=== PATIENT | female | born 1980 | race Caucasian/White ===

== ENCOUNTER 2016-10-20 11:43 | Observation (INO) ==
--- NOTE | 2016-10-20 12:05 | Emergency Department Note ---
Disposition Clinical Impression: Dysarthria, Left facial numbness Disposition: Admitted As Inpatient Referrals: NO,PCP [Primary Care Provider] - Forms: ED Satisfaction Letter General Adult HPI - General Chief complaint: ED Neuro Symptoms/Deficit Stated complaint: facial numbness Time Seen by Provider: 10/20/16 11:48 Source: patient, family Limitations: no limitations - History of Present Illness HPI Narrative: 36-year-old female reports to the emergency department with concerns for left facial tingling or numbness and speech disturbance which occurred about 10:50 AM. 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 There is no history of weakness or numbness in the arms or legs, she has been able to move her lips and mouth as per usual. There is no history of convulsion or confusion. No problems walking seeing or hearing. There is no history of confusion. She has been somewhat more anxious than usual over the last month. There is no history of chest pain shortness breath or bowel pain vomiting or diarrhea. The patient has a slight headache. There is no history of head trauma. There is no history of bowel or bladder problems. No back pain. She is not anticoagulated. The patient denies any major medical problems apart from cervical surgery in the past. Pain Scale: 7 - Related Data Home Medications Medication Instructions Recorded Confirmed Omeprazole 04/09/15 04/09/15 Effexor 10/18/16 Ranitidine HCl 10/18/16 Previous Rx's Medication Instructions Recorded Amoxicillin 875 mg PO BID #20 tablet 04/09/15 Guaifenesin/Pseudoephedrne HCl 1 each PO BID #20 tab.er.12h 04/09/15 [Mucinex D ER 1,200-120 mg Tab] Loratadine [Claritin] 10 mg PO DAILY #30 tablet 04/09/15 Azithromycin [Zithromax Susp] 6.25 ml PO DAILY 5 Days 04/13/16 Guaifenesin 100 mg PO Q6-8H PRN #120 mls 04/13/16 PrednisoLONE [Prelone] 5 ml PO BID 3 Days 04/13/16 Omeprazole 20 mg PO DAILY #14 tablet. 10/18/16 Allergies Allergy/AdvReac Type Severity Reaction Status Date / Time Sulfa (Sulfonamide Allergy Abdominal Verified 04/09/15 18:26 Antibiotics) Pain All systems ED: reviewed and negative except as stated. 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 Absent: scleral icterus, conjunctival injection, miosis, mydriasis - ENT ENT exam: normal exam, normal oropharynx, mucous membranes moist, TM's normal bilaterally, normal external ear exam - Neck Neck exam: Present: normal inspection, full ROM, trachea midline. Absent: tenderness, meningismus - Chest Chest inspection: Present: symmetric chest wall rise. Absent: tenderness - Respiratory Respiratory exam: Present: normal lung sounds bilaterally. Absent: respiratory distress - Cardiovascular Cardiovascular exam: Present: regular rate, normal rhythm, normal heart sounds - Abdominal Exam Abdominal exam: Present: soft, Non-Tender, normal bowel sounds. Absent: tenderness, distention, guarding, rebound, rigidity, pulsatile mass - Extremities Exam Extremities exam: Present: normal inspection, full ROM, normal capillary refill. Absent: tenderness, pedal edema, joint swelling, calf tenderness - Expanded Lower Extremity Exam Lower leg exam: Absent: Homans' sign Neurovascular/Tendon exam: Present: normal capillary refill. Absent: motor deficit, sensory deficit, tendon deficit, extremity cold to touch, pallor - Back Exam Back exam: Present: normal inspection, full ROM. Absent: tenderness, CVA tenderness (R), CVA tenderness (L), vertebral tenderness - Neurological Exam Neurological exam: Present: alert, oriented X3, CN II-XII intact, other (The patient describes decreased sensation left face disease, she is able to feel touch however. Speech pattern is not markedly abnormal. Finger to nose testing is negative.). Absent: motor sensory deficit (No overt motor defect.) - Psychiatric Psychiatric exam: Present: normal affect, normal mood - Skin Skin exam: Present: warm, dry, intact, normal color. Absent: rash, cyanosis, diaphoresis, erythema, pallor, mottled Course Vital Signs Temperature 98.1 F 10/20/16 11:48 Pulse Rate 91 03/31/17 11:48 Respiratory Rate 16 10/20/16 11:48 Blood Pressure 139/100 10/20/16 11:48 O2 Sat by Pulse Oximetry 99 10/20/16 11:48 Temperature 98.1 F 10/20/16 11:48 Pulse Rate 81 10/20/16 12:30 Respiratory Rate 16 10/20/16 12:30 Blood Pressure 137/107 10/20/16 12:30 O2 Sat by Pulse Oximetry 97 10/20/16 12:30 Oxygen Delivery Oxygen Delivery Room Air Medical Decision Making - MDM Narrative Medical decision making narrative: The patient was evaluated in the ED, stroke alert was called, CT scan head negative, [facility] neurology via tele-medicine did evaluate the patient. . TPA not recommended. Recommend further evaluation via MRI. Aspirin as well. The patient was given aspirin the ED. She appears to be stable her symptoms seem to be improving. The patient complained of some facial numbness and dysarthria, her speech is clear here, objectively I see no ortiz focal defect. She does have general sensation of the left face ease left upper and left lower extremity. No vascular defects appreciated. Gen. testing unremarkable. With the hospitalist on-call who has accepted the patient to their care. Dr. Neely, Neurology notified as a secondary storage management consultant. - Lab Data Lab results reviewed: Yes I reviewed the patient's lab results. Result diagrams: 10/20/16 12:11 10/20/16 12:11 Lab Results 10/20/16 10/20/16 10/20/16 Range/Units 11:47 12:11 12:11 WBC 12.1 H (4.3-11.1) K/mcL RBC 5.20 H (3.82-4.97) M/mcL Hgb 15.6 H (11.5-15.4) g/dL Hct 46.7 H (35.3-44.9) % MCV 89.8 (83.0-100.0) fL MCH 30.0 (28.0-33.3) pg MCHC 33.4 (31.6-35.5) g/dL RDW 13.3 (11.5-14.5) % Plt Count 319 (140-400) K/mcL MPV 9.3 L (9.4-12.4) fL Immature Gran % 0.2 (0-4) % Seg Neutrophils % 67.5 % Lymphocytes % 27.7 % Monocytes % 4.0 % Eosinophils % 0.3 % Basophils % 0.3 % Neutrophils # 8.2 (1.6-8.9) K/mcL Lymphocytes # 3.4 (0.6-4.6) K/mcL Monocytes # 0.5 (0.0-1.3) K/mcL Eosinophils # 0.0 (0.0-0.6) K/mcL Basophils # 0.0 (0.0-0.2) K/mcL PT 11.4 (9.4-12.1) Seconds INR 1.1 APTT 31.2 (26.0-36.0) Seconds Sodium (136-145) mEq/L Potassium (3.5-4.5) mEq/L Chloride (98-109) mEq/L Carbon Dioxide (19-29) mEq/L BUN (7-20) mg/dL Creatinine (0.57-1.11) mg/dL Est GFR ( Amer) (> 60) Est GFR (Non-Af Amer) (> 60) BUN/Creatinine Ratio (6-26) Glucose (70-99) mg/dL POC Glucose 123 H (58-89) Calculated Osmolality (280-300) Calcium (8.6-10.8) mg/dL Total Bilirubin (0.2-1.2) mg/dL Direct Bilirubin (0.0-0.5) mg/dL Indirect Bilirubin (0.0-1.2) mg/dL AST (5-34) Units/L ALT (0-55) Units/L Alkaline Phosphatase (38-126) Units/L Troponin I (0-0.03) ng/mL C-Reactive Protein (Less than 5) mg/L Serum Total Protein (6.0-8.3) g/dL Albumin (3.5-5.0) g/dL Globulin (2.4-3.5) g/dL Albumin/Globulin Ratio (1.1-2.2) Serum , Qual (Negative) 10/20/16 10/20/16 10/20/16 Range/Units 12:11 12:11 12:11 WBC (4.3-11.1) K/mcL RBC (3.82-4.97) M/mcL Hgb (11.5-15.4) g/dL Hct (35.3-44.9) % MCV (83.0-100.0) fL MCH (28.0-33.3) pg MCHC (31.6-35.5) g/dL RDW (11.5-14.5) % Plt Count (140-400) K/mcL MPV (9.4-12.4) fL Immature Gran % (0-4) % Seg Neutrophils % % Lymphocytes % % Monocytes % % Eosinophils % % Basophils % % Neutrophils # (1.6-8.9) K/mcL Lymphocytes # (0.6-4.6) K/mcL Monocytes # (0.0-1.3) K/mcL Eosinophils # (0.0-0.6) K/mcL Basophils # (0.0-0.2) K/mcL PT (9.4-12.1) Seconds INR APTT (26.0-36.0) Seconds Sodium 138 (136-145) mEq/L Potassium 3.6 (3.5-4.5) mEq/L Chloride 106 (98-109) mEq/L Carbon Dioxide 25 (19-29) mEq/L BUN 9 (7-20) mg/dL Creatinine 1.08 (0.57-1.11) mg/dL Est GFR ( Amer) > 60 (> 60) Est GFR (Non-Af Amer) 57 L (> 60) BUN/Creatinine Ratio 8 (6-26) Glucose 112 H (70-99) mg/dL POC Glucose (58-89) Calculated Osmolality 285 (280-300) Calcium 9.2 (8.6-10.8) mg/dL Total Bilirubin 0.6 (0.2-1.2) mg/dL Direct Bilirubin 0.3 (0.0-0.5) mg/dL Indirect Bilirubin 0.3 (0.0-1.2) mg/dL AST 16 (5-34) Units/L ALT 9 (0-55) Units/L Alkaline Phosphatase 61 (38-126) Units/L Troponin I 0.00 (0-0.03) ng/mL C-Reactive Protein 6 H (Less than 5) mg/L Serum Total Protein 8.0 (6.0-8.3) g/dL Albumin 4.0 (3.5-5.0) g/dL Globulin 4.0 H (2.4-3.5) g/dL Albumin/Globulin Ratio 1.0 L (1.1-2.2) Serum , Qual Negative (Negative) - Radiology Data Radiology results reviewed: Yes I reviewed the patient's radiology results. - EKG Data EKG #1 EKG shows normal: sinus rhythm Rate: normal Interpretation: no acute changes
[2016-10-20 12:18] LABS: Basophils % 0.3 %; Eosinophils % 0.3 %; Hematocrit 46.7 % (35.3-44.9); Hemoglobin 15.6 g/dL (11.5-15.4); Immature Granulocytes % 0.2 % (0-4); Lymphocytes # 3.4 K/mcL (0.6-4.6); Lymphocytes % 27.7 %; Mean Corpuscular HGB Conc 33.4 g/dL (31.6-35.5); Mean Corpuscular Volume 89.8 fL (83.0-100.0); Mean Platelet Volume 9.3 fL (9.4-12.4); Monocytes # 0.5 K/mcL (0.0-1.3); Neutrophils # 8.2 K/mcL (1.6-8.9); Red Cell Distribution Width 13.3 % (11.5-14.5); Segmented Neutrophils % 67.5 %
[2016-10-20 12:20] LABS: Platelet Count 319 K/mcL (140-400)
[2016-10-20 12:24] LABS: INR 1.1; Prothrombin Time 11.4 Seconds (9.4-12.1)
[2016-10-20 12:26] LABS: Activated Partial Thrombo Time 31.2 Seconds (26.0-36.0)
[2016-10-20 12:31] LABS: BUN/Creatinine Ratio 8 (6-26); Blood Urea Nitrogen 9 mg/dL (7-20); Carbon Dioxide 25 mEq/L (19-29); Chloride 106 mEq/L (98-109); Potassium 3.6 mEq/L (3.5-4.5); Sodium 138 mEq/L (136-145); eGFR For African Americans > 60 (> 60)
[2016-10-20 12:32] LABS: Calcium 9.2 mg/dL (8.6-10.8); Glucose 112 mg/dL (70-99); Osmolality,Calculated 285 (280-300); eGFR For Non-African Americans 57 (> 60)
[2016-10-20 12:46] LABS: Alanine Aminotransferase 9 Units/L (0-55); Alkaline Phosphatase 61 Units/L (38-126); Aspartate Amino Transferase 16 Units/L (5-34); Bilirubin,Direct 0.3 mg/dL (0.0-0.5); Bilirubin,Indirect 0.3 mg/dL (0.0-1.2); Bilirubin,Total 0.6 mg/dL (0.2-1.2); C-Reactive Protein 6 mg/L (Less than 5)
[2016-10-20] MEDS ORDERED: Aspirin 325 MG TABLET PO ONE (12:47)
[2016-10-20 13:39] VITALS: BP 144/95
[2016-10-20] MEDS ORDERED: clonazePAM 0.5 MG TABLET PO PRN (13:48)
--- NOTE | 2016-10-20 13:55 | Internal Med History&Physical ---
Date of Encounter: 10/20/16 Time of Encounter: 13:51 Assessment and Plan (1) Left facial numbness Current visit: Yes Status: Acute Possible TIA. Her symptom is improving. NIH stroke scale is one no other focal neurological deficits. Patients will be started on aspirin and Ajay. MRI of the brain as well as MRA of the head and neck will be performed. Echocardiogram on carotid Doppler's. I have advised the patient to discontinue contraceptive pills as they may have provoked this event. She is taking them for control of menstrual irregularities she otherwise is an IUD for contraception. Rule out also dural venous thrombosis. Neurology will see the patient. she will receive heparin and famotidine for DVT and peptic ulcer disease prophylaxis respectively. She is full code. Telemetry monitoring Internal Medicine - H&P: HPI Chief complaint: Left face numbness History of present illness: Ms. Adams is a 36 year old female presents to the emergency room today with the main complain of left facial numbness. Approximately 11 AM today patient started noticing numbness affecting her left face and left hand. Her noted that her speech was slow however it was clear he did not notice any slowing and she had no problems finding the right words. She denied any focal upper or lower extremity weakness. No gate unsteadiness. I have seen the patient approximately 3 hours later and sheimprovement in her numbness on the left side of the face. She denied having any similar problems before. She mentioned that she was started 4 days ago on oral contraceptive pills to control her menstrual irregularities. She has left frontal headache just prior history of migraine headaches. Brody zaldivar has evaluated the patient and did not feel that she is a TPA candidate their impression was possible TIA or Mayor stroke. There recommended MRI of the brain. Past Med Surg Social Fam HX - Past Medical History Medical history: no medical history Psychiatric history: no psych history - Social History Smoking Status: Current every day smoker Smokeless Tobacco Status: No Alcohol use: occasionally Internal Medicine - H&P: Meds Cetirizine HCl [Zyrtec] 10 mg PO DAILY 10/20/16 [History] ClonazePAM [Klonopin] 0.5 mg PO BID PRN 10/20/16 [History] Fluticasone Propionate Nasal [Flonase] 1 spray NS DAILY 10/20/16 [History] Omeprazole [Omeprazole] 20 mg PO BID 10/20/16 [History] Ranitidine HCl [Acid Duplication Specialist] 150 mg PO BID PRN 10/20/16 [History] Venlafaxine HCl [Venlafaxine HCl ER] 37.5 mg PO DAILY 10/20/16 [History] Allergies Sulfa (Sulfonamide Antibiotics) Allergy (Verified 04/09/15 18:26) Abdominal Pain All Systems PM: A 10-system review of systems was performed and is negative for pertinent findings except as documented above in the HPI. Review of systems: 10 point review of systems is negative except for HPI - Constitutional Vitals: Temp Pulse Resp BP Pulse Ox 98.1 F 77 16 144/95 96 10/20/16 13:35 10/20/16 13:35 10/20/16 13:35 10/20/16 13:35 10/20/16 13:35 Exam: Gen.: patient is alert oriented not in distress. Cardiac: Normal S1 S2 no additional sounds or murmurs chest: clear to auscultation abdomen soft nontender nondistended normal bowel sounds lower extremity: lax calf muscles neuro decrease pinprick sensation on left side of face otherwise no neurological deficits Internal Med - H&P Results - Labs CBC & Chem 7: 10/20/16 12:11 10/20/16 12:11
[2016-10-20] MEDS ORDERED: *HR* Heparin 5,000 UNIT/ML VIAL SQ SCH (14:00)
[2016-10-20 15:48] LABS: Bilirubin,Urine Negative (Negative); Blood,Urine Moderate (Negative); Color,Urine Yellow (Yellow); Glucose,Urine (UA) Normal (Normal); Ketones,Urine Negative (Negative); Leukocyte Esterase,Urine Small (Negative); Nitrite,Urine Negative (Negative); PH,Urine 6.5 pH Units (5.0-8.0); Protein,Urine Negative (Neg-Trace); Specific Gravity,Urine 1.013 (1.010-1.025); Urobilinogen,Urine Normal (Normal)
[2016-10-20 15:51] LABS: Bacteria,Urine Few per hpf (None-Few); Hyaline Casts,Urine None Seen per lpf (None-Few); RBC,Urine 0-3 per hpf (0-3); Squamous Epithelial Cell,Urine Many per lpf (None-Few); WBC,Urine 15-30 per hpf (0-3)
[2016-10-20 15:52] LABS: Clarity,Urine Hazy (Clear)
--- NOTE | 2016-10-20 16:14 | Neurology - Consult Note ---
Date of Encounter: 10/20/16 Time of Encounter: 16:11 Assessment and Plan (1) Left facial numbness Current Visit: Yes Status: Acute No evidence of CVA. this could be related to complicated migraine or focal neurological symptoms related to new development of HTN. Her BP was elevated today. She is a young woman and would not recommend antiplatelet therapy at present time, rather, she is advised to monitor her BP and follow up with PCP for proper management of possible new development of HTN. May have chronic migraine and recommend triptan therapy in the form of Imitrex. If migraine worsens in the future and she may benefit from neurology consult as an outpatient. History of Present Illness Chief complaint: left facial numbness and headaches HPI: Ms. Adams is a 36 year old female with PMH significant for migraine who presented acute onset of headache and left facial numbness. This occurred in the morning and she does have a head. She used to have migraine 3-4 times a month. She describes acute onset of left facial numbness and feels like given a shot of novocaine. The feeling lasted less than few hours and resolved. No other discomforts. At the time of this interview, she is asymptomatic. Completed MRI of brain and MRA of brain and neck which were all reported normal studies. Past Med Surg Social Fam HX - Past Medical History Medical history: no medical history Psychiatric history: no psych history - Social History Smoking Status: Current every day smoker Smokeless Tobacco Status: No Alcohol use: occasionally Medications and Allergies Cetirizine HCl [Zyrtec] 10 mg PO DAILY 10/20/16 [History] ClonazePAM [Klonopin] 0.5 mg PO BID PRN 10/20/16 [History] Fluticasone Propionate Nasal [Flonase] 1 spray NS DAILY 10/20/16 [History] Omeprazole [Omeprazole] 20 mg PO BID 10/20/16 [History] Ranitidine HCl [Acid Manager Hi] 150 mg PO BID PRN 10/20/16 [History] Venlafaxine HCl [Venlafaxine HCl ER] 37.5 mg PO DAILY 10/20/16 [History] Allergies Sulfa (Sulfonamide Antibiotics) Allergy (Verified 04/09/15 18:26) Abdominal Pain All Systems: A 10-system review of systems was performed and is negative for pertinent findings except as documented above in the HPI. Physical Examination - Vital Signs Vital Signs: Initial Vital Signs Temp Pulse Resp BP Pulse Ox 98.1 F 91 16 139/100 99 10/20/16 11:48 10/20/16 11:48 10/20/16 11:48 10/20/16 11:48 10/20/16 11:48 - Constitutional General appearance: comfortable - Neurologic Sensorimotor examination: intact Detailed motor examination: grossly full strength in all extremities Motor examination - right side: 5/5: deltoids, biceps, triceps, wrist flexion, wrist extension, office lead, hip flexors, tibialis Anterior, quadriceps, toe extension (EHL), plantarflexion Motor examination - left side: 5/5: deltoids, biceps, triceps, wrist flexion, wrist extension, hip flexors, office lead, quadriceps, tibialis Anterior, toe extension (EHL), plantarflexion Detailed sensory examination: intact Reflex and gait examination: intact Reflexes: Biceps: 1+, Triceps: 1+, Brachioradialis: 1+, Patella: 1+, Achilles: 1 + Mental Status Examination: awake, alert, oriented to person, oriented to place, oriented to time, follows commands appropriately, answers questions appropriately, no agnosia, no aphasia, no aproxia Cranial nerve examination: PERRL, EOMI, visual montes intact, corneal reflexes brisk symmetrically, sensory to face intact, mastication intact, no facial asymmetry is present, no dysarthria, hearing is intact symmetrically, soft palate elevates bilaterally upon phonation, gag reflex intact, flexes SCM and trapezius muscles symmetrically with full power, tongue protrudes midline, no atrophy or facial fasiculations present Cerebellar examination: no dysmetria, performs finger to nose and heel to roberson symmetrically without ataxia, no gait ataxia, no truncal ataxia, no difficulty with rapid alternating movements Results - Laboratory Findings CBC and BMP: 10/20/16 12:11 10/20/16 12:11 Abnormal lab findings: Abnormal lab results WBC 12.1 K/mcL (4.3-11.1) H 10/20/16 12:11 RBC 5.20 M/mcL (3.82-4.97) H 10/20/16 12:11 Hgb 15.6 g/dL (11.5-15.4) H 10/20/16 12:11 Hct 46.7 % (35.3-44.9) H 10/20/16 12:11 MPV 9.3 fL (9.4-12.4) L 10/20/16 12:11 Est GFR (Non-Af Amer) 57 (> 60) L 10/20/16 12:11 Glucose 112 mg/dL (70-99) H 10/20/16 12:11 POC Glucose 123 (58-89) H 10/20/16 11:47 C-Reactive Protein 6 mg/L (Less than 5) H 10/20/16 12:11 Globulin 4.0 g/dL (2.4-3.5) H 10/20/16 12:11 Albumin/Globulin Ratio 1.0 (1.1-2.2) L 10/20/16 12:11 Urine Clarity Hazy (Clear) A 10/20/16 15:40 Urine Blood Moderate (Negative) H 10/20/16 15:40 Ur Leukocyte Esterase Small (Negative) H 10/20/16 15:40 Urine Microscopic WBC 15-30 per hpf (0-3) H 10/20/16 15:40 Ur Squamous Epith Cells Many per lpf (None-Few) H 10/20/16 15:40 Ur Culture Indicated? YES (NO) A 10/20/16 15:40 Consult Discharge Plan - Plan Referrals: Deidra Ortiz, JOE [Primary Care Provider] - 10/27/16 1:00 pm
[2016-10-20 17:23] LABS: Amphetamine Screen,Urine Negative ng/mL (Cutoff=1000); Barbiturate Screen,Urine Negative ng/mL (Cutoff=200); Benzodiazepines Screen,Urine Negative ng/mL (Cutoff=200); Cannabinoid Screen,Urine Negative ng/mL (Cutoff = 50); Cocaine Screen,Urine Negative ng/mL (Cutoff= 300); Opiate Screen,Urine Negative ng/mL (Cutoff=300); Phencyclidine Screen,Urine Negative ng/mL (Cutoff=25)
[2016-10-20] MEDS ORDERED: Famotidine 20 MG TABLET PO SCH (21:00)
[2016-10-21] MEDS ORDERED: Venlafaxine XR (24 HR) 37.5 MG CAP.ER.24H PO SCH (09:00)
[2016-10-21] MEDS ORDERED: Aspirin Enteric Coated 325 MG Tablet PO SCH (09:00)
[2016-10-21] MEDS ORDERED: Fluticasone Propionate Nasal 50 MCG/SPRAY BOTTLE NS SCH (09:00)
--- NOTE | 2016-10-21 09:09 | Electrocardiograph Report ---
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
== END 2016-10-20 17:35 | disposition left against medical advice (07) ==
LOC: EMEROO 11:43 → 3BNU 11:43
PROVIDERS: ADMIT Hospitalist; ATTEND Registered Nurse

== ENCOUNTER 2016-11-25 13:15 | Observation (INO) ==
--- NOTE | 2016-11-25 13:33 | Emergency Department Note ---
Disposition Clinical Impression: Headache, Facial numbness, Left facial numbness, Left arm numbness, Hypertension, Leukocytosis Disposition: Admitted As Inpatient General Adult HPI - General Chief complaint: ED Neuro Symptoms/Deficit Stated complaint: L Facial / Upper Extremity Numbness Time Seen by Provider: 11/25/16 13:23 Source: patient - History of Present Illness HPI Narrative: 36-year-old female reports emergency department complaining of left facial tingling and left arm tingling. She was recently admitted the to the hospital evaluated via MRI MRA of the head neck as well as a neurology consultation. The patient had high blood pressure, they thought perhaps her symptomatology was from elevated blood pressure or possibly a migraine. The patient also had recent carotid duplex ultrasound as her admission here. The patient describes a headache. There is no history of head injury. No neck stiffness rash or fever. No cough runny nose ear pain or sore throat. There is no history of chest pain or shortness of breath no abdominal pain vomiting or diarrhea no vaginal discharge or bleeding no acute back pain. There is no history of confusion or convulsion no trouble walking talking hearing seeing or speaking. The patient reports this tingling and numbness in the same as before. Patient has no personal history of aneurysm brain tumor or mass. No previous brain surgery. She does not describe neck pain or bowel or bladder dysfunction. She reports is not having and tingling started a few days ago. Pain Scale: 2 - Related Data Home Medications Medication Instructions Recorded Confirmed Cetirizine HCl [Zyrtec] 10 mg PO DAILY 10/20/16 10/20/16 ClonazePAM [Klonopin] 0.5 mg PO BID PRN 10/20/16 10/20/16 Fluticasone Propionate Nasal 1 spray NS DAILY 10/20/16 10/20/16 [Flonase] Omeprazole [Omeprazole] 20 mg PO BID 10/20/16 10/20/16 Ranitidine HCl [Acid Res Habilitation Assistant] 150 mg PO BID PRN 10/20/16 10/20/16 Venlafaxine HCl [Venlafaxine HCl 37.5 mg PO DAILY 10/20/16 10/20/16 ER] Allergies Allergy/AdvReac Type Severity Reaction Status Date / Time Sulfa (Sulfonamide Allergy Abdominal Verified 11/25/16 13:25 Antibiotics) Pain All systems ED: reviewed and negative except as stated. 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 Absent: scleral icterus, conjunctival injection, nystagmus, miosis, mydriasis - ENT ENT exam: normal exam, normal oropharynx, mucous membranes moist, TM's normal bilaterally, normal external ear exam - Neck Neck exam: Present: normal inspection, full ROM, trachea midline - Chest Chest inspection: Present: symmetric chest wall rise. Absent: tenderness - Respiratory Respiratory exam: Present: normal lung sounds bilaterally. Absent: respiratory distress, wheezes, accessory muscle use, prolonged expiratory phase - Cardiovascular Cardiovascular exam: Present: regular rate, normal rhythm, normal heart sounds - Abdominal Exam Abdominal exam: Present: soft, Non-Tender, normal bowel sounds. Absent: tenderness, distention, guarding, rebound, rigidity - Extremities Exam Extremities exam: Present: normal inspection, full ROM, normal capillary refill. Absent: tenderness, pedal edema, joint swelling, calf tenderness - Expanded Lower Extremity Exam Neurovascular/Tendon exam: Present: normal capillary refill. Absent: pulse deficit, motor deficit, sensory deficit, tendon deficit, extremity cold to touch , pallor - Back Exam Back exam: Present: normal inspection, full ROM. Absent: tenderness, CVA tenderness (R), CVA tenderness (L), vertebral tenderness - Neurological Exam Neurological exam: Present: alert, oriented X3, CN II-XII intact. Absent: motor sensory deficit - Psychiatric Psychiatric exam: Present: normal affect, normal mood - Skin Skin exam: Present: warm, dry, intact, normal color. Absent: rash, cyanosis, diaphoresis, erythema, pallor, mottled Course Vital Signs Temperature 97.5 F L 11/25/16 13:21 Pulse Rate 72 11/25/16 13:21 Respiratory Rate 16 11/25/16 13:21 Blood Pressure 137/96 11/25/16 13:21 O2 Sat by Pulse Oximetry 99 11/25/16 13:21 Temperature 97.5 F L 11/25/16 13:21 Pulse Rate 83 11/25/16 16:22 Respiratory Rate 16 11/25/16 16:22 Blood Pressure 112/76 11/25/16 16:22 O2 Sat by Pulse Oximetry 96 11/25/16 16:22 Oxygen Delivery Oxygen Delivery Room Air Medical Decision Making - MDM Narrative Medical decision making narrative: The patient has had recurrent neurologic symptoms, her testing has been negative , I consulted with the neurologist on-call Dr. Morris, who feels the patient will definitely need further evaluation including an MRI of the cervical spine and lumbar puncture. He cites that cervical pathology can occasionally cause facial symptomatology. The patient added the history that she has had cervical surgery. Possible consideration could be given for outpatient management depending on patient's capability for follow-up and preference, I reviewed the case directly with the patient who far first to be evaluated in the hospital. She has had recurrent neurologic symptoms should been highly concerning for her.. Based on the patient's recurrent symptomatology, leukocytosis, and neurologist recommendation for further testing, I thought it would be appropriate to admit the patient hospital. I discussed case with the hospitalist on-call who has accepted the patient to their care. - Lab Data Lab results reviewed: Yes I reviewed the patient's lab results. Result diagrams: 11/25/16 14:41 11/25/16 14:41 Lab Results 11/25/16 11/25/16 11/25/16 Range/Units 13:42 13:42 14:41 WBC 14.0 H (4.3-11.1) K/mcL RBC 4.64 (3.82-4.97) M/mcL Hgb 13.9 (11.5-15.4) g/dL Hct 41.8 (35.3-44.9) % MCV 90.1 (83.0-100.0) fL MCH 30.0 (28.0-33.3) pg MCHC 33.3 (31.6-35.5) g/dL RDW 13.3 (11.5-14.5) % Plt Count 340 (140-400) K/mcL MPV 9.6 (9.4-12.4) fL Immature Gran % 0.3 (0-4) % Seg Neutrophils % 63.9 % Lymphocytes % 29.8 % Monocytes % 5.1 % Eosinophils % 0.6 % Basophils % 0.3 % Neutrophils # 9.0 H (1.6-8.9) K/mcL Lymphocytes # 4.2 (0.6-4.6) K/mcL Monocytes # 0.7 (0.0-1.3) K/mcL Eosinophils # 0.1 (0.0-0.6) K/mcL Basophils # 0.0 (0.0-0.2) K/mcL PT (9.4-12.1) Seconds INR APTT (26.0-36.0) Seconds Sodium (136-145) mEq/L Potassium (3.5-4.5) mEq/L Chloride (98-109) mEq/L Carbon Dioxide (19-29) mEq/L BUN (7-20) mg/dL Creatinine (0.57-1.11) mg/dL Est GFR ( Amer) (> 60) Est GFR (Non-Af Amer) (> 60) BUN/Creatinine Ratio (6-26) Glucose (70-99) mg/dL Calculated Osmolality (280-300) Calcium (8.6-10.8) mg/dL Total Bilirubin (0.2-1.2) mg/dL Direct Bilirubin (0.0-0.5) mg/dL Indirect Bilirubin (0.0-1.2) mg/dL AST (5-34) Units/L ALT (0-55) Units/L Alkaline Phosphatase (38-126) Units/L C-Reactive Protein (Less than 5) mg/L Serum Total Protein (6.0-8.3) g/dL Albumin (3.5-5.0) g/dL Globulin (2.4-3.5) g/dL Albumin/Globulin Ratio (1.1-2.2) Serum , Qual (Negative) Urine Test Negative (Negative) Urine Opiates Screen Negative (Vcxrvs=678) ng/mL Ur Barbiturates Screen Negative (Yvyefz=485) ng/mL Ur Phencyclidine Scrn Negative (Cutoff=25) ng/mL Ur Amphetamines Screen Negative (Xyqkjj=6446) ng/mL U Benzodiazepines Scrn Negative (Hgbbkz=507) ng/mL Urine Cocaine Screen Negative (Cutoff= 300) ng/mL U Marijuana (THC) Screen Negative (Cutoff = 50) ng/mL 11/25/16 11/25/16 11/25/16 Range/Units 14:41 14:41 14:41 WBC (4.3-11.1) K/mcL RBC (3.82-4.97) M/mcL Hgb (11.5-15.4) g/dL Hct (35.3-44.9) % MCV (83.0-100.0) fL MCH (28.0-33.3) pg MCHC (31.6-35.5) g/dL RDW (11.5-14.5) % Plt Count (140-400) K/mcL MPV (9.4-12.4) fL Immature Gran % (0-4) % Seg Neutrophils % % Lymphocytes % % Monocytes % % Eosinophils % % Basophils % % Neutrophils # (1.6-8.9) K/mcL Lymphocytes # (0.6-4.6) K/mcL Monocytes # (0.0-1.3) K/mcL Eosinophils # (0.0-0.6) K/mcL Basophils # (0.0-0.2) K/mcL PT 11.5 (9.4-12.1) Seconds INR 1.1 APTT 32.2 (26.0-36.0) Seconds Sodium 139 (136-145) mEq/L Potassium 3.7 (3.5-4.5) mEq/L Chloride 107 (98-109) mEq/L Carbon Dioxide 26 (19-29) mEq/L BUN 8 (7-20) mg/dL Creatinine 0.83 (0.57-1.11) mg/dL Est GFR ( Amer) > 60 (> 60) Est GFR (Non-Af Amer) > 60 (> 60) BUN/Creatinine Ratio 10 (6-26) Glucose 75 (70-99) mg/dL Calculated Osmolality 285 (280-300) Calcium 9.0 (8.6-10.8) mg/dL Total Bilirubin 0.4 (0.2-1.2) mg/dL Direct Bilirubin 0.2 (0.0-0.5) mg/dL Indirect Bilirubin 0.2 (0.0-1.2) mg/dL AST 15 (5-34) Units/L ALT 10 (0-55) Units/L Alkaline Phosphatase 60 (38-126) Units/L C-Reactive Protein 7 H (Less than 5) mg/L Serum Total Protein 6.6 (6.0-8.3) g/dL Albumin 3.4 L (3.5-5.0) g/dL Globulin 3.2 (2.4-3.5) g/dL Albumin/Globulin Ratio 1.1 (1.1-2.2) Serum , Qual (Negative) Urine Test (Negative) Urine Opiates Screen (Ukcozf=509) ng/mL Ur Barbiturates Screen (Xyayoj=731) ng/mL Ur Phencyclidine Scrn (Cutoff=25) ng/mL Ur Amphetamines Screen (Auhfar=9146) ng/mL U Benzodiazepines Scrn (Vjbtkl=798) ng/mL Urine Cocaine Screen (Cutoff= 300) ng/mL U Marijuana (THC) Screen (Cutoff = 50) ng/mL 11/25/16 Range/Units 14:41 WBC (4.3-11.1) K/mcL RBC (3.82-4.97) M/mcL Hgb (11.5-15.4) g/dL Hct (35.3-44.9) % MCV (83.0-100.0) fL MCH (28.0-33.3) pg MCHC (31.6-35.5) g/dL RDW (11.5-14.5) % Plt Count (140-400) K/mcL MPV (9.4-12.4) fL Immature Gran % (0-4) % Seg Neutrophils % % Lymphocytes % % Monocytes % % Eosinophils % % Basophils % % Neutrophils # (1.6-8.9) K/mcL Lymphocytes # (0.6-4.6) K/mcL Monocytes # (0.0-1.3) K/mcL Eosinophils # (0.0-0.6) K/mcL Basophils # (0.0-0.2) K/mcL PT (9.4-12.1) Seconds INR APTT (26.0-36.0) Seconds Sodium (136-145) mEq/L Potassium (3.5-4.5) mEq/L Chloride (98-109) mEq/L Carbon Dioxide (19-29) mEq/L BUN (7-20) mg/dL Creatinine (0.57-1.11) mg/dL Est GFR ( Amer) (> 60) Est GFR (Non-Af Amer) (> 60) BUN/Creatinine Ratio (6-26) Glucose (70-99) mg/dL Calculated Osmolality (280-300) Calcium (8.6-10.8) mg/dL Total Bilirubin (0.2-1.2) mg/dL Direct Bilirubin (0.0-0.5) mg/dL Indirect Bilirubin (0.0-1.2) mg/dL AST (5-34) Units/L ALT (0-55) Units/L Alkaline Phosphatase (38-126) Units/L C-Reactive Protein (Less than 5) mg/L Serum Total Protein (6.0-8.3) g/dL Albumin (3.5-5.0) g/dL Globulin (2.4-3.5) g/dL Albumin/Globulin Ratio (1.1-2.2) Serum , Qual Negative (Negative) Urine Test (Negative) Urine Opiates Screen (Yujzrn=588) ng/mL Ur Barbiturates Screen (Kekfrz=669) ng/mL Ur Phencyclidine Scrn (Cutoff=25) ng/mL Ur Amphetamines Screen (Ndjbic=2190) ng/mL U Benzodiazepines Scrn (Sojnqi=485) ng/mL Urine Cocaine Screen (Cutoff= 300) ng/mL U Marijuana (THC) Screen (Cutoff = 50) ng/mL - Radiology Data Radiology results reviewed: Yes I reviewed the patient's radiology results.
[2016-11-25 14:20] LABS: Amphetamine Screen,Urine Negative ng/mL (Cutoff=1000); Barbiturate Screen,Urine Negative ng/mL (Cutoff=200); Benzodiazepines Screen,Urine Negative ng/mL (Cutoff=200); Cannabinoid Screen,Urine Negative ng/mL (Cutoff = 50); Cocaine Screen,Urine Negative ng/mL (Cutoff= 300); Opiate Screen,Urine Negative ng/mL (Cutoff=300); Phencyclidine Screen,Urine Negative ng/mL (Cutoff=25)
[2016-11-25 15:08] LABS: Basophils % 0.3 %; Eosinophils # 0.1 K/mcL (0.0-0.6); Eosinophils % 0.6 %; Hematocrit 41.8 % (35.3-44.9); Hemoglobin 13.9 g/dL (11.5-15.4); Immature Granulocytes % 0.3 % (0-4); Lymphocytes # 4.2 K/mcL (0.6-4.6); Lymphocytes % 29.8 %; Mean Corpuscular HGB Conc 33.3 g/dL (31.6-35.5); Mean Corpuscular Volume 90.1 fL (83.0-100.0); Mean Platelet Volume 9.6 fL (9.4-12.4); Monocytes # 0.7 K/mcL (0.0-1.3); Monocytes % 5.1 %; Platelet Count 340 K/mcL (140-400); Red Blood Count 4.64 M/mcL (3.82-4.97); Red Cell Distribution Width 13.3 % (11.5-14.5); Segmented Neutrophils % 63.9 %
[2016-11-25 15:13] LABS: INR 1.1; Prothrombin Time 11.5 Seconds (9.4-12.1)
[2016-11-25 15:16] LABS: Activated Partial Thrombo Time 32.2 Seconds (26.0-36.0)
[2016-11-25 15:21] LABS: BUN/Creatinine Ratio 10 (6-26); Blood Urea Nitrogen 8 mg/dL (7-20); Carbon Dioxide 26 mEq/L (19-29); Chloride 107 mEq/L (98-109); Glucose 75 mg/dL (70-99); Osmolality,Calculated 285 (280-300); Potassium 3.7 mEq/L (3.5-4.5); Sodium 139 mEq/L (136-145); eGFR For African Americans > 60 (> 60); eGFR For Non-African Americans > 60 (> 60)
[2016-11-25 15:24] LABS: Albumin 3.4 g/dL (3.5-5.0); Albumin/Globulin Ratio 1.1 (1.1-2.2); Bilirubin,Direct 0.2 mg/dL (0.0-0.5); Bilirubin,Indirect 0.2 mg/dL (0.0-1.2); Bilirubin,Total 0.4 mg/dL (0.2-1.2); Globulin 3.2 g/dL (2.4-3.5); Total Protein 6.6 g/dL (6.0-8.3)
[2016-11-25] MEDS ORDERED: Aspirin 325 MG TABLET PO ONE (18:12)
[2016-11-25] MEDS ORDERED: Naloxone 0.4 MG/ML INJ IVP PRN (19:31)
[2016-11-25] MEDS ORDERED: Acetaminophen 325 MG TABLET PO PRN (19:31)
[2016-11-25] MEDS ORDERED: *HR* HYDROcodone/Acet 5/325 mg TABLET PO PRN (19:31)
--- NOTE | 2016-11-25 19:43 | Internal Med History&Physical ---
<Barbara Muhammad - Last Filed: 11/25/16 20:49> Date of Encounter: 11/25/16 Time of Encounter: 19:00 Assessment and Plan (1) Migraine Current visit: Yes Status: Acute 1 patient has history of migraines she has been experiencing off and on for the past weeks headache radiating down her back left sided facial tingling and left arm numbness. Patient states symptoms resolved after taking Motrin Suspect complex migraine patient was seen approximately a week ago, I neurology who suggested Imitrex for migraines patient's taking Imitrex we will initiate Imitrex as needed for migraine symptoms. Patient also had cervical MRI which did reveal Mild left C6 and C7 neural foraminal narrowing secondary to uncovertebral hypertrophy,Which could be contributing to her arm numbness. 2 we will consult neurology Qualifiers: Migraine type: unspecified Status migrainosus presence: without status migrainosus Intractability: not intractable Qualified Code(s): G43.909 - Migraine, unspecified, not intractable, without status migrainosus (2) Hypertension Current visit: Yes Status: Acute 1 patient presented blood pressure was 137/96. She has been trending blood pressures over the week and appears systolics mostly one teens with occasional systolic 1 30-140 over90. Patient was prescribed atenolol however she did not get her medications filled because her blood pressures have been running normally. We will monitor blood pressure May consider placing patient on propanolol which may help with migraines as well as blood pressure Qualifiers: Hypertension type: essential hypertension Qualified Code(s): I10 - Essential (primary) hypertension (3) Leukocytosis Current visit: Yes Status: Acute 1 patient's WBCs were 12 last week up to 14 this week. Patient is afebrile ensure if infectious process we will obtain urinalysis and recheck CBC in a.m. Qualifiers: Leukocytosis type: unspecified Qualified Code(s): D72.829 - Elevated white blood cell count, unspecified (4) DVT prophylaxis Current visit: Yes Status: Acute CHELSEY hillarybenjamín (5) Elevated troponin Current visit: Yes Status: Acute 1 she denies any chest pain shortness of breath nausea. First troponin was 0.08 we will continue to trend troponins 2 continue with aspirin 3 continuous cardiac monitoring 4 consult cardiology as needed Internal Medicine - H&P: HPI Chief complaint: BAUTISTA Left sided facial numbness Admitted From: Emergency Dept Plans for Post Hospital Care: Home History of present illness: Ms. Adams is a 36 year old female past medical history of tobacco use migraines continue experience numbness in her left arm on it continued until Sunday and resolved on its own this a.m. patient awoke she had a posterior headache radiating down to her neck as well as left sided facial tingling as a day progressed she began to experience left arm numbness. She felt that her symptoms resolved and she had taken ibuprofen. She denies any recent head injury neck stiffness rash fever sick contacts visual disturbances photophobia dysarthria or hearing difficulties. She denies any past history of seizures aneurysms brain surgeries however she has had cervical fusion 2009 patient experienced similar episode approximately 1 week ago was admitted to this facility she was evaluated and had an MRI/MRA of the head as well as neurology consultation. The patient had high blood pressure and it was concluded that symptom neurology was from elevated blood pressure possibly a migraine. She was initiated on atenolol however the patient states she has not been taking it because her blood pressures have been running normal except for a few occasional high readings. She was seen in the ER for the above complaints according to ER records upon presentation patient's blood pressure was 137/96 pulse was 72 respiratory rate 16 pulse ox 99% lab work did reveal to ABC of 14 which is up from previous which was 12 troponin of [address] of head was negative. ER physician did speak with neurology who requested obtaining a cervical MRI possible LP. Patient has been admitted for further workup and evaluation. Presently patient denies any pain numbness or tingling. She is alert appropriate following commands. Speech is clear and fluent extremities are equal and strong 4 pupils are PERRL. No nuchal rigidity no chest pain or shortness of breath lung sounds are clear heart sounds S1 and S2 with no rubs clicks gallops murmurs noted. I reviewed this case with who agrees with plan. Past Med Surg Social Fam HX - Past Medical History Medical history: migraine Psychiatric history: no psych history - Social History Smoking Status: Current every day smoker Smokeless Tobacco Status: No Alcohol use: occasionally Drug use: none - Family History Mother Living Status: Still Living Hx Family Neurologic Disorders: Yes (Migraines) Sister Living Status: Still Living Hx Family Neurologic Disorders: Yes (Migraines) Internal Medicine - H&P: Meds Cetirizine HCl [Zyrtec] 10 mg PO DAILY 10/20/16 [History] ClonazePAM [Klonopin] 0.5 mg PO BID PRN 10/20/16 [History] Fluticasone Propionate Nasal [Flonase] 1 spray NS PRN PRN 10/20/16 [History] Omeprazole [Omeprazole] 20 mg PO BID 10/20/16 [History] Venlafaxine HCl [Venlafaxine HCl ER] 37.5 mg PO DAILY 10/20/16 [History] Allergies Sulfa (Sulfonamide Antibiotics) Allergy (Verified 11/25/16 13:25) Abdominal Pain All Systems PM: A 10-system review of systems was performed and is negative for pertinent findings except as documented above in the HPI. - Constitutional Constitutional: no chills, no fever(s), no night sweats - EENT Eyes: no change in vision, no discharge, no pain, no photophobia - Cardiovascular Cardiovascular ROS IM: no chest pain, no diaphoresis, no dyspnea, no lightheadedness, no palpitations, no syncope - Respiratory Respiratory: no cough, no dyspnea, no wheezing, no excessive phlegm production - Gastrointestinal Gastrointestinal: no abdominal pain, no diarrhea, no hematemesis, no hematochezia, no melena, no nausea, no vomiting - Genitourinary Genitourinary: no change in urinary stream, no dysuria, no flank pain, no hematuria - Musculoskeletal Musculoskeletal ROS IM: neck pain - Neurological Neurological ROS: headache(s), numbness, tingling - Constitutional Vitals: Temp Pulse Resp BP Pulse Ox 97.9 F 74 16 125/82 96 11/25/16 18:43 11/25/16 18:43 11/25/16 18:43 11/25/16 18:43 11/25/16 18:43 General appearance: Present: A&O X 3, answers questions appropriately - Head Head exam: Present: atraumatic, normocephalic - Eye Eye exam: Present: PERRL, conjuntiva pink, sclera anicteric Pupils: Present: PERRL - Neck Neck exam general surgery: Present: supple, trachea midline. Absent: lymphadenopathy - Respiratory Respiratory exam: Present: CTAB. Absent: accessory muscle use, rales, rhonchi, wheezes - Cardiovascular Cardiovascular exam: Present: RRR, +S1, +S2. Absent: diastolic murmur, gallop, rubs, systolic murmur - GI/Abdominal GI/Abdominal exam: Present: normal bowel sounds, soft, no peritoneal signs. Absent: distended, tenderness - Extremities Exam Extremities exam: Present: warm, radial pulses palpable and symetrical. Absent : calf tenderness, cyanotic, pedal edema - Neurological Exam Neurological exam: Present: CN II-XII intact, oriented X3, no focal deficits. Absent: pronater drift, facial droop, speech deficit - Skin Skin exam: Present: dry, intact Internal Med - H&P Results - Labs CBC & Chem 7: 11/25/16 14:41 11/25/16 14:41 - EKG Data EKG shows normal: sinus rhythm - EKG Data Prior EKG available for review: yes When compared to previous EKG: there is no significant change - Impressions ITS Impressions Cervical Spine MRI 11/25/16 17:25 IMPRESSION: 1. No acute abnormality of the cervical spine. 2. Prior C4-5 and C5-6 ACDF. 3. Mild left C6 and C7 neural foraminal narrowing secondary to uncovertebral hypertrophy. D/ / Luis Felipe Mar MD / Luis Felipe Mar MD Interpreting Provider: Luis Felipe Mar MD - Diagnostic Studies Other Images Additional comments: Head CT 11/25/16 13:56 IMPRESSION: No acute intracranial abnormality. D/ / 11/25/2016 15:19:45 Marino Narvaez MD / la Interpreting Provider: Marino Narvaez MD Cervical Spine MRI 11/25/16 17:25 IMPRESSION: 1. No acute abnormality of the cervical spine. 2. Prior C4-5 and C5-6 ACDF. 3. Mild left C6 and C7 neural foraminal narrowing secondary to uncovertebral hypertrophy. D/ / Luis Felipe Mar MD / Luis Felipe Mar MD Interpreting Provider: Luis Felipe Mar MD <Camille España - Last Filed: 11/25/16 21:02> Date of Encounter: 11/25/16 Internal Medicine - H&P: HPI History of present illness: Ms. Adams is a 36 year old female All Systems PM: A 10-system review of systems was performed and is negative for pertinent findings except as documented above in the HPI. - Constitutional Vitals: Temp Pulse Resp BP Pulse Ox 97.9 F 74 16 125/82 96 11/25/16 18:43 11/25/16 18:43 11/25/16 18:43 11/25/16 18:43 11/25/16 18:43 Internal Med - H&P Results - Labs CBC & Chem 7: 11/25/16 14:41 11/25/16 14:41 Labs: Urine 11/25/16 Range/Units 19:56 Urine Color Yellow (Yellow) Urine Clarity Clear (Clear) Urine pH 6.5 (5.0-8.0) pH Units Ur Specific [place] 1.019 (1.010-1.025) Urine Protein Negative (Neg-Trace) mg/dL Urine Glucose (UA) Normal (Normal) mg/dL - Impressions ITS Impressions Cervical Spine MRI 11/25/16 17:25 IMPRESSION: 1. No acute abnormality of the cervical spine. 2. Prior C4-5 and C5-6 ACDF. 3. Mild left C6 and C7 neural foraminal narrowing secondary to uncovertebral hypertrophy. D/ / Luis Felipe Mar MD / Luis Felipe Mar MD Interpreting Provider: Luis Felipe Mar MD - Attending Attestation I examined this patient and my medical decision-making was reviewed with the Advanced Practice Nurse I agree with the documented findings, disposition and treatment plan as described
[2016-11-25] MEDS ORDERED: Ibuprofen 400 MG TABLET PO PRN (20:06)
[2016-11-25 20:07] LABS: Bilirubin,Urine Negative (Negative); Blood,Urine Trace (Negative); Clarity,Urine Clear (Clear); Color,Urine Yellow (Yellow); Glucose,Urine (UA) Normal (Normal); Ketones,Urine Negative (Negative); Leukocyte Esterase,Urine Negative (Negative); Nitrite,Urine Negative (Negative); PH,Urine 6.5 pH Units (5.0-8.0); Protein,Urine Negative (Neg-Trace); Specific Gravity,Urine 1.019 (1.010-1.025); Urobilinogen,Urine Normal (Normal)
[2016-11-25 20:08] LABS: Bacteria,Urine None Seen per hpf (None-Few); Hyaline Casts,Urine None Seen per lpf (None-Few); Squamous Epithelial Cell,Urine Many per lpf (None-Few); WBC,Urine 0-3 per hpf (0-3)
[2016-11-25] MEDS ORDERED: SUMAtriptan succinate 25 MG TABLET PO PRN (20:35)
[2016-11-26 02:57] LABS: Basophils # 0.1 K/mcL (0.0-0.2); Basophils % 0.6 %; Eosinophils # 0.2 K/mcL (0.0-0.6); Eosinophils % 1.4 %; Hemoglobin 13.7 g/dL (11.5-15.4); Immature Granulocytes % 0.2 % (0-4); Lymphocytes # 4.9 K/mcL (0.6-4.6); Lymphocytes % 46.3 %; Mean Corpuscular HGB Conc 32.6 g/dL (31.6-35.5); Mean Corpuscular Hemoglobin 29.7 pg (28.0-33.3); Mean Corpuscular Volume 90.9 fL (83.0-100.0); Mean Platelet Volume 9.7 fL (9.4-12.4); Monocytes # 0.7 K/mcL (0.0-1.3); Monocytes % 6.2 %; Neutrophils # 4.8 K/mcL (1.6-8.9); Platelet Count 349 K/mcL (140-400); Red Blood Count 4.62 M/mcL (3.82-4.97); Red Cell Distribution Width 13.2 % (11.5-14.5); Segmented Neutrophils % 45.3 %
[2016-11-26 03:14] LABS: BUN/Creatinine Ratio 10 (6-26); Blood Urea Nitrogen 11 mg/dL (7-20); Calcium 8.6 mg/dL (8.6-10.8); Carbon Dioxide 27 mEq/L (19-29); Chloride 108 mEq/L (98-109); Chol/HDL Ratio 4.1 (0-4.9); Cholesterol 135 mg/dL (< 200); Glucose 101 mg/dL (70-99); HDL Cholesterol 33 mg/dL (40-59); LDL Cholesterol,Calculated 76 mg/dL (0-99); Osmolality,Calculated 292 (280-300); Potassium 3.4 mEq/L (3.5-4.5); Sodium 141 mEq/L (136-145); Triglycerides 129 mg/dL (< 150); eGFR For African Americans > 60 (> 60); eGFR For Non-African Americans 56 (> 60)
[2016-11-26 07:12] VITALS: BP 106/72
[2016-11-26] MEDS ORDERED: Fluticasone Propionate Nasal 50 MCG/SPRAY BOTTLE NS PRN (08:05)
[2016-11-26] MEDS ORDERED: clonazePAM 0.5 MG TABLET PO PRN (08:05)
[2016-11-26] MEDS ORDERED: Aspirin 81 MG TAB.CHEW PO SCH (09:00)
[2016-11-26] MEDS ORDERED: Loratadine 10 MG TABLET PO SCH (09:00)
[2016-11-26] MEDS ORDERED: Venlafaxine XR (24 HR) 37.5 MG CAP.ER.24H PO SCH (09:00)
--- NOTE | 2016-11-26 09:28 | Electrocardiograph Report ---
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
--- NOTE | 2016-11-26 11:08 | Neurosurgical History&Physical ---
Date of Encounter: 11/26/16 Time of Encounter: 11:03 Assessment and Plan (1) Left facial numbness Current visit: Yes Status: Acute Possible TIA in the setting of hypertension and/or hypercoagulable factors. Needs outpatient evaluation for hypercoagulability. Possible demyelinating disease: Needs outpatient LP and neurology follow-up with Dr. Arenas/Florinda. Possible complicated migraines: diagnosis of exclusion - the above two should be excluded. Topmax is a good choice for this, final of 50 bid. May be started outpatient with Neurology follow-up, since a new medication for hypertension has been started. If Propranolol or atenolol is chosen, it may work for migraines as well. Call if questions. History of Present Illness Chief complaint: left facial numbness, left arm numbness HPI: Ms. Adams is a 36 year old female The patient is a 36-year old woman who came to the ER with complaints of left face/arm numbness. Has had hypertension in the past. She was seen here in September for similar problem, at which time, hypertensive etiology versus migraines was suspected. She was sent home once the blood pressure was down. She has significant history of migraines, one bad one in a week, during which she has to go to a quiet, dark room, and sleep it away. No bowel bladder issues. No prior history of visual problems, double vision, or ataxia. Not diabetic. Both times, when she had the facial and arm symptoms, she had headache. Her LP could not be done yesterday. Doing well today. has no complaints. States that she is back to baseline and wants to go home. Past Med Surg Social Fam HX - Past Medical History Medical history: hypertension (per patient report), migraine Psychiatric history: no psych history - Past Surgical History Surgical History: other - Social History Smoking Status: Current every day smoker Packs per day: 0.5 Smokeless Tobacco Status: No Alcohol use: occasionally Drug use: none - Family History Mother Adopted: [place]: JIGNESH Age: 61 Family Member Ethnicity: Non- Living Status: Still Living Hx Family Cardiac Disorders: Yes (HTN) Hx Family Respiratory Disorders: No Hx Family Cancer: No Hx Family GI Disorders: No Hx Family Genitourinary Disorders: No Hx Family Endocrine Disorder: No Hx Family Musculoskeletal Disorders: No Hx Family Neuromuscular Disorders: No Hx Family Neurologic Disorders: Yes (Migraines) Hx Family HEENT Disorders: No Hx Family Autoimmune Disorders: No Hx Family Reproductive Disorders: No Hx Family Psychosocial Disorders: No Hx Family Medical Disorders: No Sister Living Status: Still Living Hx Family Neurologic Disorders: Yes (Migraines) Medications and Allergies Cetirizine HCl [Zyrtec] 10 mg PO DAILY 10/20/16 [History] ClonazePAM [Klonopin] 0.5 mg PO BID PRN 10/20/16 [History] Fluticasone Propionate Nasal [Flonase] 1 spray NS PRN PRN 10/20/16 [History] Omeprazole [Omeprazole] 20 mg PO BID 10/20/16 [History] Venlafaxine HCl [Venlafaxine HCl ER] 37.5 mg PO DAILY 10/20/16 [History] Allergies Sulfa (Sulfonamide Antibiotics) Allergy (Verified 11/25/16 13:25) Abdominal Pain All Systems: A 10-system review of systems was performed and is negative for pertinent findings except as documented above in the HPI. Physical Examination - Vital Signs Vital Signs: Initial Vital Signs Temp Pulse Resp BP Pulse Ox 97.5 F L 72 16 137/96 99 11/25/16 13:21 11/25/16 13:21 11/25/16 13:21 11/25/16 13:21 11/25/16 13:21 Vital Signs (72 hours) 11/25/16 13:21 11/25/16 15:44 11/25/16 16:22 Temperature 97.5 F L Pulse Rate 72 64 83 Respiratory Rate 16 14 16 Blood Pressure 137/96 112/74 112/76 O2 Sat by Pulse Oximetry 99 97 96 11/25/16 17:55 11/25/16 18:43 11/25/16 23:04 Temperature 97.9 F 98 F Pulse Rate 74 70 Respiratory Rate 16 16 16 Blood Pressure 124/91 125/82 97/68 O2 Sat by Pulse Oximetry 96 94 11/26/16 03:11 11/26/16 07:11 Temperature 97.5 F L 97.9 F Pulse Rate 73 79 Respiratory Rate 14 16 Blood Pressure 114/79 106/72 O2 Sat by Pulse Oximetry 96 97 - Neurologic Sensorimotor examination: intact Motor examination - right side: 5: deltoids, biceps, triceps, wrist flexion, 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 extension, 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, hip flexors, tibialis Anterior, quadriceps, toe extension (EHL), plantarflexion Motor examination - left side: 11/24: deltoids, biceps, triceps, wrist flexion, wrist extension, hip flexors, 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, quadriceps, tibialis Anterior, toe extension (EHL), plantarflexion Detailed sensory examination: intact (to light touch, temperature and vibration) Reflex and gait examination: intact Reflexes: Biceps: 2+, Triceps: 2+, Brachioradialis: 2+, Patella: 2+, Achilles: 2 + Mental Status Examination: awake, alert, oriented to person, oriented to place, oriented to time, follows commands appropriately, answers questions appropriately, no agnosia, no aphasia, no aproxia, lucid Cranial nerve examination: PERRL, EOMI, visual montes intact, corneal reflexes brisk symmetrically, sensory to face intact, mastication intact, no facial asymmetry is present, no dysarthria, hearing is intact symmetrically, soft palate elevates bilaterally upon phonation, gag reflex intact, flexes SCM and trapezius muscles symmetrically with full power, tongue protrudes midline, no atrophy or facial fasiculations present Cerebellar examination: no dysmetria, performs finger to nose and heel to roberson symmetrically without ataxia, no gait ataxia, no truncal ataxia, no difficulty with rapid alternating movements Results - Laboratory Findings CBC and BMP: 11/26/16 02:31 11/26/16 02:31 Abnormal lab findings: Abnormal lab results Lymphocytes # 4.9 K/mcL (0.6-4.6) H 11/26/16 02:31 Potassium 3.4 mEq/L (3.5-4.5) L 11/26/16 02:31 Est GFR (Non-Af Amer) 56 (> 60) L 11/26/16 02:31 Glucose 101 mg/dL (70-99) H 11/26/16 02:31 C-Reactive Protein 7 mg/L (Less than 5) H 11/25/16 14:41 Albumin 3.4 g/dL (3.5-5.0) L 11/25/16 14:41 HDL Cholesterol 33 mg/dL (40-59) L 11/26/16 02:31 Urine Blood Trace (Negative) H 11/25/16 19:56 Urine Microscopic RBC 5-15 per hpf (0-3) H 11/25/16 19:56 Ur Squamous Epith Cells Many per lpf (None-Few) H 11/25/16 19:56 - Diagnostic Findings Additional findings: Prior MRI brain normal. ITS Impressions Head CT 11/25/16 13:56 IMPRESSION: No acute intracranial abnormality. D/ / 11/25/2016 15:19:45 Marino Narvaez MD / la Interpreting Provider: Marino Narvaez MD Cervical Spine MRI 11/25/16 17:25 IMPRESSION: 1. No acute abnormality of the cervical spine. 2. Prior C4-5 and C5-6 ACDF. 3. Mild left C6 and C7 neural foraminal narrowing secondary to uncovertebral hypertrophy. D/ / Luis Felipe Mar MD / Luis Felipe Mar MD Interpreting Provider: Luis Felipe Mar MD
--- NOTE | 2016-11-26 12:48 | Discharge Summary ---
Date of Encounter: 11/26/16 Time of Encounter: 09:30 - Discharge Diagnosis (1) Left facial numbness Priority: Primary Status: Resolved (2) Headache Priority: Primary Status: Resolved (3) Left arm numbness Priority: Primary Status: Resolved (4) Hypertension Priority: Secondary Status: Chronic Comments: Well-controlled throughout this admission Qualifiers: Hypertension type: essential hypertension Qualified Code(s): I10 - Essential (primary) hypertension (5) Leukocytosis Priority: Primary Status: Resolved Qualifiers: Leukocytosis type: unspecified Qualified Code(s): D72.829 - Elevated white blood cell count, unspecified (6) Migraine Priority: Primary Status: Resolved Qualifiers: Migraine type: unspecified Status migrainosus presence: without status migrainosus Intractability: not intractable Qualified Code(s): G43.909 - Migraine, unspecified, not intractable, without status migrainosus (7) DVT prophylaxis Priority: Primary Status: Acute Comments: Observation patient. Up ad vanesa. (8) Elevated troponin Priority: Primary Status: Resolved - Discharge Medications Home Medications: Cetirizine HCl [Zyrtec] 10 mg PO DAILY 10/20/16 [History] ClonazePAM [Klonopin] 0.5 mg PO BID PRN 10/20/16 [History] Fluticasone Propionate Nasal [Flonase] 1 spray NS PRN PRN 10/20/16 [History] Omeprazole 20 mg PO BID 10/20/16 [History] Venlafaxine HCl [Venlafaxine HCl ER] 37.5 mg PO DAILY 10/20/16 [History] Allergies/Adverse Reactions: Allergies Sulfa (Sulfonamide Antibiotics) Allergy (Verified 11/25/16 13:25) Abdominal Pain Procedures/tests Complete & Pending: Procedures Performed prior 72 hours Category Date Time Status MR cervical spine wo con [MR] Stat MRI 11/25/16 17:25 Completed Date of admission: 11/25/16 17:19 Primary care physician: Deidra Ortiz CNP Consults: 11/25/16 19:34 Consult to Neurology [CONS] Routine Consulting Provider: Neurology [facility] Reason for Consult: BAUTISTA left sided facial numbness Time Notified: 19:34 Call Completed: No Discharging clinician: Darleen Fletcher Anticipated date of discharge: 11/26/16 - Patient Status Disposition: Home, Self-Care Condition: Good Functional capacity at discharge: independent ambulation Overall status at discharge: patient is back to baseline - Discharge Instructions Follow Up With: Deidra Ortiz CNP [Primary Care Provider] - Neurology [facility] [Provider Group] Additional Instructions: Follow-up with primary care provider within one to 2 weeks. Obtain lumbar puncture within 1 week and follow up with neurology within 2 weeks - Diet and Activity Activity: increase activity as tolerated Diet: low salt diet Hospital course: Ms. Adams is a 36 year old female with past medical history of migraines, tobacco abuse, prior cervical fusion in 2009. Patient presented to emergency room chief complaint numbness in her left arm that started 2 days prior to presentation that resolved on its own but 2 days later which was the day of presentation, patient woke up in the morning and had a posteriorly located headache radiating down her neck and the left side of her face that progressed through the day to include left arm numbness. Patient stating her symptoms had resolved again after she had taken ibuprofen. She denied any recent injuries, rash, fever, vision changes or hearing difficulties. Of note, patient had an episode similar to this one and she was seen at this facility one week prior where an MRI and MRA of the head was unremarkable and it was attributed to a complex migraine versus uncontrolled hypertension the patient was started on atenolol. Patient stating she has not been taking the atenolol as prescribed because she states that she is trending her blood pressure and her blood pressure has not been high enough to warrant taking the medication. Workup in the emergency department revealing an initially elevated troponin of 0.08. Head CT negative. Cervical spine MRI negative for acute processes. Patient was admitted to the hospitalist service for further evaluation and management. Repeat troponins 2 both 0.00. Patient denied chest pain or shortness of breath throughout this admission, likely demand ischemia secondary to hypertension. Patient's blood pressure was well-controlled during this one night admission and she did not receive any antihypertensive medications. Neurology was brought on board and as the patient's symptoms had completely resolved, she was cleared for outpatient follow-up with strong recommendation for an outpatient LP to possibly rule out MS with follow-up with neurology after her LP. There was no indication to initiate blood pressure medication during this visit. Patient's migraine also resolved. Urinalysis was negative. Tox screen is negative. Neuro also recommended possible initiation of Topamax on an outpatient basis at the discretion of neurology if hypercoagulable and demyelinating disease is ruled out. Patient was asymptomatic and had no focal neurological weakness is present during this admission. She is discharged home in stable condition with close outpatient follow-up recommended. ITS Impressions Head CT 11/25/16 13:56 IMPRESSION: No acute intracranial abnormality. D/ / 11/25/2016 15:19:45 Marino Narvaez MD / la Interpreting Provider: Marino Narvaez MD Cervical Spine MRI 11/25/16 17:25 IMPRESSION: 1. No acute abnormality of the cervical spine. 2. Prior C4-5 and C5-6 ACDF. 3. Mild left C6 and C7 neural foraminal narrowing secondary to uncovertebral hypertrophy. D/ / Luis Felipe Mar MD / Luis Felipe Mar MD Interpreting Provider: Luis Felipe Mar MD - Time Spent with Patient Total time spent providing and/or coordinating discharge services: - Constitutional Vitals: Temp Pulse Resp BP Pulse Ox 97.9 F 79 16 106/72 97 11/26/16 07:11 11/26/16 07:11 11/26/16 07:11 11/26/16 07:11 11/26/16 07:11 General appearance: Present: A&O X 3, pleasant, no acute distress, answers questions appropriately - Head Head exam: Present: atraumatic, normocephalic - Eye Eye exam: Present: PERRL, conjuntiva pink, sclera anicteric Pupils: Present: PERRL - Neck Neck exam general surgery: Present: supple, trachea midline. Absent: lymphadenopathy - Respiratory Respiratory exam: Present: CTAB. Absent: accessory muscle use, rales, respiratory distress, rhonchi, wheezes - Cardiovascular Cardiovascular exam: Present: RRR, +S1, +S2. Absent: diastolic murmur, gallop, rubs, systolic murmur - GI/Abdominal GI/Abdominal exam: Present: normal bowel sounds, soft, no peritoneal signs. Absent: distended, tenderness - Extremities Exam Extremities exam: Present: warm, radial pulses palpable and symetrical. Absent : calf tenderness, cyanotic, pedal edema - Neurological Exam Neurological exam: Present: alert, CN II-XII intact, oriented X3, no focal deficits, strengths equal and symetr throughout. Absent: pronater drift, facial droop, speech deficit - Skin Skin exam: Present: dry, intact, normal color, warm
== END 2016-11-26 13:45 | disposition home or self-care (01) ==
LOC: 3BNU 13:15 → EMEROO 13:15 → 3BNU 18:08
PROVIDERS: ADMIT Nurse Practitioner Family; ATTEND Nurse Practitioner Family

== ENCOUNTER 2017-10-21 22:13 | Inpatient (IN) ==
[2017-10-21 22:55] LABS: Bilirubin,Urine Negative (Negative); Blood,Urine Moderate (Negative); Clarity,Urine Cloudy (Clear); Color,Urine Yellow (Yellow); Glucose,Urine (UA) Normal (Normal); Ketones,Urine Negative (Negative); Leukocyte Esterase,Urine Small (Negative); Nitrite,Urine Negative (Negative); Protein,Urine Negative (Neg-Trace); Specific Gravity,Urine 1.019 (1.010-1.025); Urobilinogen,Urine Normal (Normal)
[2017-10-21 22:58] LABS: Bacteria,Urine Few per hpf (None-Few); Hyaline Casts,Urine None Seen per lpf (None-Few); Squamous Epithelial Cell,Urine Many per lpf (None-Few)
[2017-10-21 23:29] LABS: Basophils # 0.1 K/mcL (0.0-0.2); Basophils % 0.4 %; Eosinophils # 0.1 K/mcL (0.0-0.6); Eosinophils % 0.4 %; Hematocrit 42.3 % (35.3-44.9); Immature Granulocytes % 0.3 % (0-4); Lymphocytes # 4.4 K/mcL (0.6-4.6); Lymphocytes % 36.9 %; Mean Corpuscular HGB Conc 33.1 g/dL (31.6-35.5); Mean Corpuscular Hemoglobin 29.9 pg (28.0-33.3); Mean Corpuscular Volume 90.4 fL (83.0-100.0); Mean Platelet Volume 9.3 fL (9.4-12.4); Monocytes # 0.8 K/mcL (0.0-1.3); Neutrophils # 6.6 K/mcL (1.6-8.9); Platelet Count 330 K/mcL (140-400); Red Blood Count 4.68 M/mcL (3.82-4.97); Red Cell Distribution Width 13.2 % (11.5-14.5)
[2017-10-21 23:48] LABS: Albumin 3.8 g/dL (3.5-5.7); Albumin/Globulin Ratio 1.5 (1.1-2.2); Bilirubin,Direct 0.1 mg/dL (0.0-0.2); Bilirubin,Indirect 0.1 mg/dL (0.0-1.2); Bilirubin,Total 0.2 mg/dL (0.3-1.0); Globulin 2.5 g/dL (2.4-3.5); Total Protein 6.3 g/dL (6.4-8.9)
[2017-10-21 23:49] LABS: BUN/Creatinine Ratio 10 (6-26); Blood Urea Nitrogen 9 mg/dL (6-20); Calcium 9.3 mg/dL (8.6-10.3); Carbon Dioxide 23 mEq/L (23-29); Chloride 108 mEq/L (98-107); Glucose 87 mg/dL (70-105); Osmolality,Calculated 284 (280-300); Potassium 3.6 mEq/L (3.5-5.1); Sodium 138 mEq/L (136-145); eGFR For African Americans > 60 (> 60); eGFR For Non-African Americans > 60 (> 60)
[2017-10-22 00:08] LABS: Amphetamine Screen,Urine Negative ng/mL (Cutoff=1000); Barbiturate Screen,Urine Negative ng/mL (Cutoff=200); Benzodiazepines Screen,Urine Negative ng/mL (Cutoff=200); Cannabinoid Screen,Urine Positive ng/mL (Cutoff = 50); Cocaine Screen,Urine Negative ng/mL (Cutoff= 300); Opiate Screen,Urine Negative ng/mL (Cutoff=300); Phencyclidine Screen,Urine Negative ng/mL (Cutoff=25)
[2017-10-22] MEDS ORDERED: Nicotine 14 MG PATCH.TD24 TD ONE (00:15)
[2017-10-22 00:18] LABS: Ethanol 17 mg/dL (Less than 10); Salicylate < 2.5 mg/dL (15.0-30.0)
[2017-10-22 00:39] LABS: Acetaminophen < 10 mcg/mL (10-20)
--- NOTE | 2017-10-22 02:01 | Emergency Department Note ---
Disposition Clinical Impression: Suicide attempt Disposition: Admitted As Inpatient Condition: Good Referrals: NONE,PCP [Primary Care Provider] - Forms: ED Satisfaction Letter Time of Disposition: 06:31 General Adult HPI - General Chief complaint: ED Psychiatric Symptoms Stated complaint: SI Time Seen by Provider: 10/21/17 22:41 Source: patient, EMS Mode of arrival: EMS Limitations: no limitations Nursing Notes Reviewed: Yes Vital Signs Reviewed: Yes - History of Present Illness HPI Narrative: 29-year-old female with significant past medical history of depression and hypertension presenting to the emergency Department chief complaint of suicidal ideation. Patient states she took 28 of her 50 mg Zoloft at 9 PM just prior to arrival. Patient was suicidal and. Patient denies visual or auditory hallucinations. States she has been hospitalized for depression previously. Denies any other alcohol or drug intoxication. Patient denies any medical concerns or complaints at this time. Pain Scale: 0 - Related Data Home Medications Medication Instructions Recorded Confirmed Atenolol [Tenormin] 25 mg PO DAILY 03/29/17 08/09/17 Pantoprazole Sodium 40 mg PO DAILY 03/29/17 08/09/17 Cetirizine HCl [Zyrtec] 10 mg PO DAILY PRN 04/16/17 08/09/17 Venlafaxine XR (24 HR) [Effexor XR] 150 mg PO HS 04/16/17 08/09/17 Mirtazapine [Remeron] 15 mg PO HS 08/09/17 08/09/17 Prazosin [Minipress] 1 mg PO HS 08/09/17 08/09/17 Venlafaxine HCl [Venlafaxine HCl 75 mg PO HS 08/09/17 08/09/17 ER] Previous Rx's Medication Instructions Recorded Amoxicillin [Amoxil] 1,000 mg PO BID 10 Days #20 capsule 08/28/17 Ibuprofen 800 mg PO Q8HR PRN #30 tablet 08/28/17 Loratadine [Claritin] 10 mg PO DAILY #20 tablet 08/28/17 Allergies Allergy/AdvReac Type Severity Reaction Status Date / Time Sulfa (Sulfonamide Allergy Anaphylaxis Verified 08/28/17 12:38 Antibiotics) All systems ED: reviewed and negative except as stated. Psychiatric: Reports: depression, suicidal thoughts Past Medical History - Past Medical History Attestation: Yes The following information was validated with the patient. Medical history: Reports: hypertension, TIA, other Surgical history: Reports: breast surgery, orthopedic, other, other Psychiatric history: Reports: anxiety, bipolar, depression, PTSD [employer] history: Reports: bilateral tubal ligation - Social History Smoking Status: Current every day smoker Smokeless Tobacco Status: No Alcohol use: Reports: rarely, recent Drug use: Reports: marijuana Physical Exam - General Limitations: no limitations General appearance: alert, in no apparent distress - Head Head exam: atraumatic, normocephalic, normal inspection - Eye Eye exam: Present: normal appearance. Absent: scleral icterus, conjunctival injection - ENT ENT exam: normal exam, mucous membranes moist - Neck Neck exam: Present: normal inspection, full ROM. Absent: tenderness, meningismus - Chest Chest inspection: Present: normal inspection, symmetric chest wall rise. Absent : tenderness, rash - Respiratory Respiratory exam: Present: normal lung sounds bilaterally. Absent: respiratory distress, wheezes - Cardiovascular Cardiovascular exam: Present: regular rate, normal rhythm, normal heart sounds - Abdominal Exam Abdominal exam: Present: soft, Non-Tender. Absent: distention, guarding, rebound - Extremities Exam Extremities exam: Present: normal inspection, full ROM - Neurological Exam Neurological exam: Present: alert, oriented X3 - Psychiatric Psychiatric exam: Present: suicidal ideation - Skin Skin exam: Present: warm, intact Course Course Narrative: 29-year-old female with suicidal ideation and overdose of Zoloft. I spoke with poison control who states basic laboratory analysis along with hepatic panel and EKG plus observation for 6 hours after time of ingestion is necessary for medical clearance. We will obtain basic laboratory analysis and urinalysis. We will also obtain EKG and observe the patient until 3 AM. Patient disposition pending these results and psychiatric clearance. Patient is alert and oriented 3 and room with stable vital signs. No medical concerns or complaints at this time. - Reevaluation(s) Reevaluation #1: Patient was observed until 3 AM with no complications or concerns. Psychiatric evaluation completed by 1A who feels the patient should be admitted at this time for further psychiatric evaluation. Patient is alert and oriented 3 in the room stable vital signs. We will admit the patient at this time. On-call psychiatrist accept the patient. Vital Signs Temperature 98.0 F 10/21/17 22:28 Pulse Rate 82 10/21/17 22:28 Respiratory Rate 18 10/21/17 22:28 Blood Pressure 103/69 10/21/17 22:28 O2 Sat by Pulse Oximetry 96 10/21/17 22:28 Temperature 98.0 F 10/21/17 22:28 Pulse Rate 82 10/21/17 22:28 Respiratory Rate 18 10/21/17 22:28 Blood Pressure 103/69 10/21/17 22:28 O2 Sat by Pulse Oximetry 96 10/21/17 22:28 Oxygen Delivery Oxygen Delivery Room Air Medical Decision Making - Lab Data Result diagrams: 10/21/17 23:08 10/21/17 23:08 Lab Results 10/21/17 10/21/17 10/21/17 Range/Units 22:20 22:20 22:20 WBC (4.3-11.1) K/mcL RBC (3.82-4.97) M/mcL Hgb (11.5-15.4) g/dL Hct (35.3-44.9) % MCV (83.0-100.0) fL MCH (28.0-33.3) pg MCHC (31.6-35.5) g/dL RDW (11.5-14.5) % Plt Count (140-400) K/mcL MPV (9.4-12.4) fL Immature Gran % (0-4) % Seg Neutrophils % % Lymphocytes % % Monocytes % % Eosinophils % % Basophils % % Neutrophils # (1.6-8.9) K/mcL Lymphocytes # (0.6-4.6) K/mcL Monocytes # (0.0-1.3) K/mcL Eosinophils # (0.0-0.6) K/mcL Basophils # (0.0-0.2) K/mcL Sodium (136-145) mEq/L Potassium (3.5-5.1) mEq/L Chloride (98-107) mEq/L Carbon Dioxide (23-29) mEq/L BUN (6-20) mg/dL Creatinine (0.60-1.20) mg/dL Est GFR ( Amer) (> 60) Est GFR (Non-Af Amer) (> 60) BUN/Creatinine Ratio (6-26) Glucose (70-105) mg/dL Calculated Osmolality (280-300) Calcium (8.6-10.3) mg/dL Total Bilirubin (0.3-1.0) mg/dL Direct Bilirubin (0.0-0.2) mg/dL Indirect Bilirubin (0.0-1.2) mg/dL AST (13-39) Units/L ALT (7-52) Units/L Alkaline Phosphatase (34-104) Units/L Serum Total Protein (6.4-8.9) g/dL Albumin (3.5-5.7) g/dL Globulin (2.4-3.5) g/dL Albumin/Globulin Ratio (1.1-2.2) Urine Color Yellow (Yellow) Urine Clarity Cloudy A (Clear) Urine pH 6.0 (5.0-8.0) pH Units Ur Specific [place] 1.019 (1.010-1.025) Urine Protein Negative (Neg-Trace) mg/dL Urine Glucose (UA) Normal (Normal) mg/dL Urine Ketones Negative (Negative) mg/dL Urine Blood Moderate H (Negative) Urine Nitrite Negative (Negative) Urine Bilirubin Negative (Negative) Urine Urobilinogen Normal (Normal) mg/dL Ur Leukocyte Esterase Small H (Negative) Urine Microscopic RBC 5-15 H (0-3) per hpf Urine Microscopic WBC 5-15 H (0-3) per hpf Ur Squamous Epith Cells Many H (None-Few) per lpf Urine Bacteria Few (None-Few) per hpf Hyaline Casts None Seen (None-Few) per lpf Urine Test Negative (Negative) Salicylates (15.0-30.0) mg/dL Urine Opiates Screen Negative (Ssytzj=567) ng/mL Acetaminophen (10-20) mcg/mL Ur Barbiturates Screen Negative (Tqadmc=865) ng/mL Ur Phencyclidine Scrn Negative (Cutoff=25) ng/mL Ur Amphetamines Screen Negative (Grhree=0950) ng/mL U Benzodiazepines Scrn Negative (Pwsgfo=973) ng/mL Urine Cocaine Screen Negative (Cutoff= 300) ng/mL U Marijuana (THC) Screen Positive H (Cutoff = 50) ng/mL Ethyl Alcohol (Less than 10) mg/dL 10/21/17 10/21/17 10/21/17 Range/Units 23:08 23:08 23:08 WBC 12.0 H (4.3-11.1) K/mcL RBC 4.68 (3.82-4.97) M/mcL Hgb 14.0 (11.5-15.4) g/dL Hct 42.3 (35.3-44.9) % MCV 90.4 (83.0-100.0) fL MCH 29.9 (28.0-33.3) pg MCHC 33.1 (31.6-35.5) g/dL RDW 13.2 (11.5-14.5) % Plt Count 330 (140-400) K/mcL MPV 9.3 L (9.4-12.4) fL Immature Gran % 0.3 (0-4) % Seg Neutrophils % 55.0 % Lymphocytes % 36.9 % Monocytes % 7.0 % Eosinophils % 0.4 % Basophils % 0.4 % Neutrophils # 6.6 (1.6-8.9) K/mcL Lymphocytes # 4.4 (0.6-4.6) K/mcL Monocytes # 0.8 (0.0-1.3) K/mcL Eosinophils # 0.1 (0.0-0.6) K/mcL Basophils # 0.1 (0.0-0.2) K/mcL Sodium 138 (136-145) mEq/L Potassium 3.6 (3.5-5.1) mEq/L Chloride 108 H (98-107) mEq/L Carbon Dioxide 23 (23-29) mEq/L BUN 9 (6-20) mg/dL Creatinine 0.93 (0.60-1.20) mg/dL Est GFR ( Amer) > 60 (> 60) Est GFR (Non-Af Amer) > 60 (> 60) BUN/Creatinine Ratio 10 (6-26) Glucose 87 (70-105) mg/dL Calculated Osmolality 284 (280-300) Calcium 9.3 (8.6-10.3) mg/dL Total Bilirubin 0.2 L (0.3-1.0) mg/dL Direct Bilirubin 0.1 (0.0-0.2) mg/dL Indirect Bilirubin 0.1 (0.0-1.2) mg/dL AST 14 (13-39) Units/L ALT 10 (7-52) Units/L Alkaline Phosphatase 69 (34-104) Units/L Serum Total Protein 6.3 L (6.4-8.9) g/dL Albumin 3.8 (3.5-5.7) g/dL Globulin 2.5 (2.4-3.5) g/dL Albumin/Globulin Ratio 1.5 (1.1-2.2) Urine Color (Yellow) Urine Clarity (Clear) Urine pH (5.0-8.0) pH Units Ur Specific [place] (1.010-1.025) Urine Protein (Neg-Trace) mg/dL Urine Glucose (UA) (Normal) mg/dL Urine Ketones (Negative) mg/dL Urine Blood (Negative) Urine Nitrite (Negative) Urine Bilirubin (Negative) Urine Urobilinogen (Normal) mg/dL Ur Leukocyte Esterase (Negative) Urine Microscopic RBC (0-3) per hpf Urine Microscopic WBC (0-3) per hpf Ur Squamous Epith Cells (None-Few) per lpf Urine Bacteria (None-Few) per hpf Hyaline Casts (None-Few) per lpf Urine Test (Negative) Salicylates < 2.5 L (15.0-30.0) mg/dL Urine Opiates Screen (Imkhpv=533) ng/mL Acetaminophen < 10 L (10-20) mcg/mL Ur Barbiturates Screen (Bwmrxy=453) ng/mL Ur Phencyclidine Scrn (Cutoff=25) ng/mL Ur Amphetamines Screen (Oxitlr=7237) ng/mL U Benzodiazepines Scrn (Qthwmk=363) ng/mL Urine Cocaine Screen (Cutoff= 300) ng/mL U Marijuana (THC) Screen (Cutoff = 50) ng/mL Ethyl Alcohol 17 H (Less than 10) mg/dL - EKG Data EKG #1 EKG attestation: Yes I reviewed and interpreted this EKG. EKG results narrative: Sinus rhythm. 73 beats for minute. CA interval 150, QRS 94, QTC 378. No signs of acute ST segment elevation or ischemia
--- NOTE | 2017-10-22 04:19 | Emergency Department Note ---
Disposition Clinical Impression: Suicide attempt Disposition: Admitted As Inpatient Condition: Good General Adult HPI - General Chief complaint: ED Psychiatric Symptoms Stated complaint: SI Time Seen by Provider: 10/21/17 22:41 Source: patient, EMS Mode of arrival: EMS Limitations: no limitations Nursing Notes Reviewed: Yes Vital Signs Reviewed: Yes - History of Present Illness Pain Scale: 0 - Related Data Home Medications Medication Instructions Recorded Confirmed Atenolol [Tenormin] 25 mg PO DAILY 03/29/17 08/09/17 Pantoprazole Sodium 40 mg PO DAILY 03/29/17 08/09/17 Cetirizine HCl [Zyrtec] 10 mg PO DAILY PRN 04/16/17 08/09/17 Venlafaxine XR (24 HR) [Effexor XR] 150 mg PO HS 04/16/17 08/09/17 Mirtazapine [Remeron] 15 mg PO HS 08/09/17 08/09/17 Prazosin [Minipress] 1 mg PO HS 08/09/17 08/09/17 Venlafaxine HCl [Venlafaxine HCl 75 mg PO HS 08/09/17 08/09/17 ER] Previous Rx's Medication Instructions Recorded Amoxicillin [Amoxil] 1,000 mg PO BID 10 Days #20 capsule 08/28/17 Ibuprofen 800 mg PO Q8HR PRN #30 tablet 08/28/17 Loratadine [Claritin] 10 mg PO DAILY #20 tablet 08/28/17 Allergies Allergy/AdvReac Type Severity Reaction Status Date / Time Sulfa (Sulfonamide Allergy Anaphylaxis Verified 08/28/17 12:38 Antibiotics) Psychiatric: Reports: depression, suicidal thoughts Past Medical History - Past Medical History Medical history: Reports: hypertension, TIA, other Surgical history: Reports: breast surgery, orthopedic, other, other Psychiatric history: Reports: anxiety, bipolar, depression, PTSD 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 - Social History Smoking Status: Current every day smoker Smokeless Tobacco Status: No Alcohol use: Reports: rarely, recent Drug use: Reports: marijuana Physical Exam - General Limitations: no limitations General appearance: alert, in no apparent distress Course Vital Signs Temperature 98.0 F 10/21/17 22:28 Pulse Rate 82 10/21/17 22:28 Respiratory Rate 18 10/21/17 22:28 Blood Pressure 103/69 10/21/17 22:28 O2 Sat by Pulse Oximetry 96 10/21/17 22:28 Temperature 98.0 F 10/21/17 22:28 Pulse Rate 82 10/21/17 22:28 Respiratory Rate 18 10/21/17 22:28 Blood Pressure 103/69 10/21/17 22:28 O2 Sat by Pulse Oximetry 96 10/21/17 22:28 Oxygen Delivery Oxygen Delivery Room Air Medical Decision Making - Lab Data Result diagrams: 10/21/17 23:08 10/21/17 23:08 Lab Results 10/21/17 10/21/17 10/21/17 Range/Units 22:20 22:20 22:20 WBC (4.3-11.1) K/mcL RBC (3.82-4.97) M/mcL Hgb (11.5-15.4) g/dL Hct (35.3-44.9) % MCV (83.0-100.0) fL MCH (28.0-33.3) pg MCHC (31.6-35.5) g/dL RDW (11.5-14.5) % Plt Count (140-400) K/mcL MPV (9.4-12.4) fL Immature Gran % (0-4) % Seg Neutrophils % % Lymphocytes % % Monocytes % % Eosinophils % % Basophils % % Neutrophils # (1.6-8.9) K/mcL Lymphocytes # (0.6-4.6) K/mcL Monocytes # (0.0-1.3) K/mcL Eosinophils # (0.0-0.6) K/mcL Basophils # (0.0-0.2) K/mcL Sodium (136-145) mEq/L Potassium (3.5-5.1) mEq/L Chloride (98-107) mEq/L Carbon Dioxide (23-29) mEq/L BUN (6-20) mg/dL Creatinine (0.60-1.20) mg/dL Est GFR ( Amer) (> 60) Est GFR (Non-Af Amer) (> 60) BUN/Creatinine Ratio (6-26) Glucose (70-105) mg/dL Calculated Osmolality (280-300) Calcium (8.6-10.3) mg/dL Total Bilirubin (0.3-1.0) mg/dL Direct Bilirubin (0.0-0.2) mg/dL Indirect Bilirubin (0.0-1.2) mg/dL AST (13-39) Units/L ALT (7-52) Units/L Alkaline Phosphatase (34-104) Units/L Serum Total Protein (6.4-8.9) g/dL Albumin (3.5-5.7) g/dL Globulin (2.4-3.5) g/dL Albumin/Globulin Ratio (1.1-2.2) Urine Color Yellow (Yellow) Urine Clarity Cloudy A (Clear) Urine pH 6.0 (5.0-8.0) pH Units Ur Specific [place] 1.019 (1.010-1.025) Urine Protein Negative (Neg-Trace) mg/dL Urine Glucose (UA) Normal (Normal) mg/dL Urine Ketones Negative (Negative) mg/dL Urine Blood Moderate H (Negative) Urine Nitrite Negative (Negative) Urine Bilirubin Negative (Negative) Urine Urobilinogen Normal (Normal) mg/dL Ur Leukocyte Esterase Small H (Negative) Urine Microscopic RBC 5-15 H (0-3) per hpf Urine Microscopic WBC 5-15 H (0-3) per hpf Ur Squamous Epith Cells Many H (None-Few) per lpf Urine Bacteria Few (None-Few) per hpf Hyaline Casts None Seen (None-Few) per lpf Urine Test Negative (Negative) Salicylates (15.0-30.0) mg/dL Urine Opiates Screen Negative (Bzwgyd=102) ng/mL Acetaminophen (10-20) mcg/mL Ur Barbiturates Screen Negative (Jndxzv=414) ng/mL Ur Phencyclidine Scrn Negative (Cutoff=25) ng/mL Ur Amphetamines Screen Negative (Cpdmsp=2724) ng/mL U Benzodiazepines Scrn Negative (Sqevzx=592) ng/mL Urine Cocaine Screen Negative (Cutoff= 300) ng/mL U Marijuana (THC) Screen Positive H (Cutoff = 50) ng/mL Ethyl Alcohol (Less than 10) mg/dL 10/21/17 10/21/17 10/21/17 Range/Units 23:08 23:08 23:08 WBC 12.0 H (4.3-11.1) K/mcL RBC 4.68 (3.82-4.97) M/mcL Hgb 14.0 (11.5-15.4) g/dL Hct 42.3 (35.3-44.9) % MCV 90.4 (83.0-100.0) fL MCH 29.9 (28.0-33.3) pg MCHC 33.1 (31.6-35.5) g/dL RDW 13.2 (11.5-14.5) % Plt Count 330 (140-400) K/mcL MPV 9.3 L (9.4-12.4) fL Immature Gran % 0.3 (0-4) % Seg Neutrophils % 55.0 % Lymphocytes % 36.9 % Monocytes % 7.0 % Eosinophils % 0.4 % Basophils % 0.4 % Neutrophils # 6.6 (1.6-8.9) K/mcL Lymphocytes # 4.4 (0.6-4.6) K/mcL Monocytes # 0.8 (0.0-1.3) K/mcL Eosinophils # 0.1 (0.0-0.6) K/mcL Basophils # 0.1 (0.0-0.2) K/mcL Sodium 138 (136-145) mEq/L Potassium 3.6 (3.5-5.1) mEq/L Chloride 108 H (98-107) mEq/L Carbon Dioxide 23 (23-29) mEq/L BUN 9 (6-20) mg/dL Creatinine 0.93 (0.60-1.20) mg/dL Est GFR ( Amer) > 60 (> 60) Est GFR (Non-Af Amer) > 60 (> 60) BUN/Creatinine Ratio 10 (6-26) Glucose 87 (70-105) mg/dL Calculated Osmolality 284 (280-300) Calcium 9.3 (8.6-10.3) mg/dL Total Bilirubin 0.2 L (0.3-1.0) mg/dL Direct Bilirubin 0.1 (0.0-0.2) mg/dL Indirect Bilirubin 0.1 (0.0-1.2) mg/dL AST 14 (13-39) Units/L ALT 10 (7-52) Units/L Alkaline Phosphatase 69 (34-104) Units/L Serum Total Protein 6.3 L (6.4-8.9) g/dL Albumin 3.8 (3.5-5.7) g/dL Globulin 2.5 (2.4-3.5) g/dL Albumin/Globulin Ratio 1.5 (1.1-2.2) Urine Color (Yellow) Urine Clarity (Clear) Urine pH (5.0-8.0) pH Units Ur Specific [place] (1.010-1.025) Urine Protein (Neg-Trace) mg/dL Urine Glucose (UA) (Normal) mg/dL Urine Ketones (Negative) mg/dL Urine Blood (Negative) Urine Nitrite (Negative) Urine Bilirubin (Negative) Urine Urobilinogen (Normal) mg/dL Ur Leukocyte Esterase (Negative) Urine Microscopic RBC (0-3) per hpf Urine Microscopic WBC (0-3) per hpf Ur Squamous Epith Cells (None-Few) per lpf Urine Bacteria (None-Few) per hpf Hyaline Casts (None-Few) per lpf Urine Test (Negative) Salicylates < 2.5 L (15.0-30.0) mg/dL Urine Opiates Screen (Kevqea=459) ng/mL Acetaminophen < 10 L (10-20) mcg/mL Ur Barbiturates Screen (Ohzahp=515) ng/mL Ur Phencyclidine Scrn (Cutoff=25) ng/mL Ur Amphetamines Screen (Hoiyjt=4985) ng/mL U Benzodiazepines Scrn (Diqzil=710) ng/mL Urine Cocaine Screen (Cutoff= 300) ng/mL U Marijuana (THC) Screen (Cutoff = 50) ng/mL Ethyl Alcohol 17 H (Less than 10) mg/dL Attestation Statement - Attestation Attestation: I, Matthew Antonio MD, personally evaluated this patient and discussed their management with the resident physician. I reviewed the resident's note and agree with the documented findings, medical decision making, and plan of care. 37-year-old female presents to the emergency department with a complaint of an intentional ingestion of 28 Zoloft tablets, 50 mg each. She ingested this about 9 PM. She admits she was trying to kill herself with the ingestion. She has had no symptoms. No dizziness or syncope. No chest pain or shortness of breath. No nausea or vomiting or diarrhea. No abdominal pain. Poison control was contacted and recommended 6 hours of observation medically and the patient could be cleared for psychiatric evaluation. On examination patient is a well-developed obese female in no acute distress. She is alert and oriented 3. There is no cyanosis or diaphoresis. Mucous membranes are moist. Airways patent. Neck is supple with no meningismus. Chest is nontender to palpation. Breath sounds are clear and equal bilaterally. Heart regular rate and rhythm. Abdomen is soft and nontender with normal bowel sounds. No gross focal neurological deficits. Labs reviewed. EKG shows a normal sinus rhythm with ventricular rate is 73. No acute ST segment elevation or depression. Normal EKG. VT interval 150. QRS duration 94. T3 52. QTC 378. [address] psychiatry service was consulted and evaluated the patient in the emergency department and patient is being admitted to the [address] psychiatry unit.
[2017-10-22] MEDS ORDERED: Ondansetron ODT 4 MG TAB.RAPDIS SL ONE (04:37)
[2017-10-22] MEDS ORDERED: Mag Hydrox/Al Hydrox/Simeth 30 ML UDC PO PRN (06:40)
[2017-10-22] MEDS ORDERED: hydrOXYzine pamoate 25 MG CAPSULE PO PRN (06:40)
[2017-10-22] MEDS ORDERED: *HR* LORazepam 1 MG TABLET PO PRN (06:40)
[2017-10-22] MEDS ORDERED: traZODone 50 MG TABLET PO PRN (06:40)
[2017-10-22] MEDS ORDERED: MOM Conc 10 ML UD.LIQ PO PRN (06:40)
[2017-10-22] MEDS ORDERED: *HR* LORazepam 2 MG/ML VIAL IM PRN (06:40)
[2017-10-22] MEDS ORDERED: Ibuprofen 400 MG TABLET PO PRN (06:40)
[2017-10-22] MEDS ORDERED: Haloperidol Lactate 5 MG/ML VIAL IM PRN (06:40)
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
[2017-10-22] MEDS ORDERED: Ibuprofen 800 MG TABLET PO PRN (12:06)
[2017-10-22] MEDS ORDERED: ARIPiprazole 2 MG TABLET PO SCH (12:15)
--- NOTE | 2017-10-22 12:46 | Electrocardiograph Report ---
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
[2017-10-22] MEDS: Acetaminophen 325 MG TABLET PO PRN (14:02)
[2017-10-22] MEDS: Loratadine 10 MG TABLET PO SCH (14:03)
[2017-10-22] MEDS: Nicotine 21 MG PATCH.TD24 TD SCH (14:03)
[2017-10-22] MEDS: Mirtazapine 15 MG TABLET PO SCH (20:39)
[2017-10-22] MEDS: Venlafaxine XR (24 HR) 150 MG CAP.ER.24H PO SCH (20:39)
[2017-10-22] MEDS: hydrOXYzine pamoate 25 MG CAPSULE PO PRN (20:52)
[2017-10-23] MEDS: Loratadine 10 MG TABLET PO SCH (08:27)
[2017-10-23] MEDS: Nicotine 21 MG PATCH.TD24 TD SCH (08:28)
[2017-10-23] MEDS: ARIPiprazole 2 MG TABLET PO SCH (08:28)
[2017-10-23] MEDS: Acetaminophen 325 MG TABLET PO PRN (08:49)
[2017-10-23] MEDS ORDERED: Loratadine 10 MG TABLET PO SCH (09:00)
[2017-10-23] MEDS: Nicotine 2 MG GUM BC PRN ×2 (11:24→21:40)
--- NOTE | 2017-10-23 12:26 | Psychiatry Progress Note ---
Date of Encounter: 10/23/17 Time of Encounter: 11:25 Subjective Interval history: Patient is seen today for follow-up of her mood and anxiety symptoms. She reports continued mood lability and irritability. She reports continued depressed mood and feelings of hopelessness at times. She denies side effects from the Abilify. She is happy with medication adjustments. She is interacting with peers and staff and going to some groups. She states she did sleep better last night. Continue to encourage patient to practice coping strategies especially when stressed. Discussed other possible options when patient is upset other than trying to hurt herself. Review of Systems Constitutional: Denies: fever, chills, weakness, weight change Eyes: Denies: eye pain, vision change Ears, Nose, Throat: Denies: ear pain, throat pain, dental pain, hearing loss, congestion Cardiovascular: Denies: chest pain, palpitations, dyspnea on exertion Respiratory: Denies: cough, dyspnea, wheezes Gastrointestinal: Denies: abdominal pain, nausea, vomiting, diarrhea, constipation Musculoskeletal: Denies: joint swelling, joint pain Neurological: Denies: headache, weakness, numbness, memory loss Psychiatric: Reports: depression, anxiety, abnormal sleep pattern, anhedonia, difficulty concentrating, hopelessness, irritability, mood swings. Denies: suicidal ideation Results - Vital Signs Vital Signs: Temp Pulse Resp BP Pulse Ox 97.4 F L 91 16 106/82 96 10/23/17 08:52 10/23/17 08:52 10/23/17 08:52 10/23/17 08:52 10/21/17 22:28 Assessment and Plan (1) Major depressive disorder Current visit: Yes Status: Acute Plan: Continue hospitalization, Close observation, Suicide Precautions per unit protocol, Encourage participation in unit milieu, Group Therapy, Monitor sleep, Monitor appetite Additional Plan: Continue with current medications for now. Patient is sleeping well. Consider increasing abilfy prior to discharge. Continue to encourage positive coping skills. Risks, benefits, side effects, alternatives discussed w/pt: Yes Patient agreeable to treatment: Yes Qualifiers: Major depression recurrence: recurrent Active/Remission status: currently active Major depression episode severity: severe Psychotic features: without psychotic features Qualified Code(s): F33.2 - Major depressive disorder, recurrent severe without psychotic features (2) Posttraumatic stress disorder Current visit: Yes Status: Acute Plan: Continue hospitalization, Close observation, Suicide Precautions per unit protocol, Encourage participation in unit milieu, Group Therapy, Monitor sleep, Monitor appetite Risks, benefits, side effects, alternatives discussed w/pt: Yes Patient agreeable to treatment: Yes (3) Cannabis abuse Current visit: Yes Status: Acute Consult Discharge Plan - Plan Referrals: [facility] [Outside] - 10/26/17 8:30 am (The above appointment is with Tania Calderon, counselor at [facility]. Your first appointment will be very thorough. You will be completing paperwork (please arrive 30 minutes early for your appointment), meeting with a counselor and a nurse, and developing a treatment plan. You will receive follow- up appointments for on-going services, which could include community support, mental health and substance abuse counseling, groups/partial hospitalization programming, medication assisted treatment, and psychiatric medication management. Please bring the following with you to your first visit to the clinic: 1) proof of household income (two consecutive pay stubs, social security award letter, bank statement, statement letter from [facility], child support statement, IRS 1040 or W2 form, or a statement from the person who financially supports you stating they help provide for your basic needs), 2) proof of residency (drivers license, a piece of mail showing your address, a statement from person you live with verifying you live at their address), 3) your social security card, 4) photo ID, and 5) your insurance card (if you have commercial insurance you must call to obtain a prior authorization number before you arrive to your first appointment). If you do not bring these items, you will not be seen. ) Deidra Ortiz, JOE [Advanced Practice Nurse] - 10/30/17 4:15 pm (The above appointment is with Deidra Ortiz for primary health care and medication management services. Please arrive 10 minutes early to complete the check-in process. Please also bring your insurance card (or HCAP award letter), photo ID , and all medications in their original bottles to this appointment. If you are unable to keep this appointment, 24 hour business notice of cancellation is expected. The above appointment(s) reflects first availability. You may contact the office regularly to check for cancellations that may allow you to be seen sooner.) Psychiatry Exam - Constitutional Vitals: Temp Pulse Resp BP Pulse Ox 97.4 F L 91 16 106/82 96 10/23/17 08:52 10/23/17 08:52 10/23/17 08:52 10/23/17 08:52 10/21/17 22:28 General appearance: age & developmentally appropriate, obese - Musculoskeletal Gait: normal Station: relaxed Strength & Tone: normal for patient - Psychiatric Patient Orientation: Yes Person, Yes Time, Yes Place Level of alertness: Alert Behavior: calm, cooperative Psychomotor activity: Normal Eye Contact: Maintains Eye Contact Affect description: dysphoric Speech Volume: Normal Speech pattern: normal rate, normal rhythm, normal tone Language & Vocabulary: consistent with education Thought Process: Intact, Logical Thought Content: No Suicidal ideation, No Homicidal ideation Perceptual Disturbances: No Auditory hallucinations, No Visual hallucinations Attention Span Ability: Capable of Focused Attention Memory Description: Grossly Intact Patient Reliability: Reliable Historian Intelligence Estimate: Average Judgment: Limited Insight: Minimal
[2017-10-23] MEDS: Venlafaxine XR (24 HR) 150 MG CAP.ER.24H PO SCH (20:03)
[2017-10-23] MEDS: Mirtazapine 15 MG TABLET PO SCH (20:03)
[2017-10-23] MEDS: hydrOXYzine pamoate 25 MG CAPSULE PO PRN (20:05)
[2017-10-24] MEDS: Loratadine 10 MG TABLET PO SCH (08:11)
[2017-10-24] MEDS: ARIPiprazole 2 MG TABLET PO SCH (08:11)
[2017-10-24 08:37] VITALS: BP 114/84
[2017-10-24] MEDS ORDERED: ARIPiprazole 2 MG TABLET PO SCH (09:37)
--- NOTE | 2017-10-24 10:47 | Discharge Summary ---
Date of Encounter: 10/24/17 Time of Encounter: 09:40 Diagnosis - Discharge Diagnosis (1) Major depressive disorder Priority: Primary Status: Acute Qualifiers: Major depression recurrence: recurrent Active/Remission status: currently active Major depression episode severity: severe Psychotic features: without psychotic features Qualified Code(s): F33.2 - Major depressive disorder, recurrent severe without psychotic features (2) Posttraumatic stress disorder Priority: Secondary Status: Acute (3) Cannabis abuse Priority: Secondary Status: Acute Medications - Discharge Medications Prescriptions: ARIPiprazole [Abilify] 5 mg PO DAILY #30 tablet hydrOXYzine pamoate [HydrOXYzine Pamoate] 50 mg PO TID PRN #90 capsule PRN Reason: Anxiety Atenolol [Tenormin] 25 mg PO DAILY 03/29/17 [History] Pantoprazole Sodium 40 mg PO DAILY 03/29/17 [History] Venlafaxine XR (24 HR) [Effexor Xr] 150 mg PO HS 04/16/17 [History] Mirtazapine [Remeron] 15 mg PO HS 08/09/17 [History] Prazosin [Minipress] 1 mg PO HS 08/09/17 [History] Ibuprofen 800 mg PO Q8HR PRN #30 tablet 08/28/17 [Rx] Loratadine [Claritin] 10 mg PO DAILY #20 tablet 08/28/17 [Rx] ARIPiprazole [Abilify] 5 mg PO DAILY #30 tablet 10/24/17 [Rx] hydrOXYzine pamoate [HydrOXYzine Pamoate] 50 mg PO TID PRN #90 capsule 10/24/17 [Rx] 3 Allergy/AdvReac Type Severity Reaction Status Date / Time Sulfa (Sulfonamide Allergy Anaphylaxis Verified 08/28/17 12:38 Antibiotics) Provider Date of admission: 10/22/17 06:40 Primary care physician: PCP NONE Discharging clinician: Ilsa Gilliam Psychiatry Exam - Constitutional Vitals: Temp Pulse Resp BP Pulse Ox 97.6 F 98 16 114/84 96 10/24/17 08:36 10/24/17 08:36 10/24/17 08:36 10/24/17 08:36 10/21/17 22:28 General appearance: age & developmentally appropriate, well-groomed, well- nourished - Musculoskeletal Gait: normal Station: relaxed Strength & Tone: normal for patient - Psychiatric Patient Orientation: Yes Person, Yes Time, Yes Place Level of alertness: Alert Behavior: calm, cooperative Psychomotor activity: Normal Eye Contact: Maintains Eye Contact Mood Description: Euthymic/stable Affect description: congruent with mood, full range Speech Volume: Normal Speech pattern: normal rate, normal rhythm, normal tone, fluent, spontaneous Language & Vocabulary: consistent with education Thought Process: Linear, Goal Oriented Thought Content: No Suicidal ideation, No Homicidal ideation, No Overt delusions Perceptual Disturbances: No Auditory hallucinations, No Visual hallucinations Attention Span Ability: Capable of Focused Attention Memory Description: Grossly Intact Patient Reliability: Reliable Historian Fund of knowledge: Yes abstraction ability, Yes aware of current events Intelligence Estimate: Average Judgment: Limited Insight: Partial Hospital Course Hospital course: Ms. Adams is a 37 year old female with a history of depression, anxiety, personality issues who presented to the hospital after an impulsive but intentional overdose on Zoloft after argument with her boyfriend and son. Patient was admitted to for psychiatric stabilization. She is incorporated into the therapeutic milieu and offer group and individual as well as recreational therapy. She was also offered psychoeducational materials and supportive therapy she is placed on suicide precautions and close observation per unit protocol. She was restarted on Effexor and started on Abilify for augmentation of her depression medications. Zoloft was discontinued. Patient was also offered Vistaril for anxiety symptoms. Patient attended group and unit activities on the unit. She was cooperative with peers and staff. Patient was attended to ADLs and eating and drinking normally. At the time of discharge patient denied suicidal or homicidal ideation, intent, or plan. She denies side effects of her meds and was willing to take them as prescribed until she can follow up with her outpatient provider. She is discharged in stable condition. - Time Spent with Patient Total time spent providing and/or coordinating discharge services: Less than 30 minutes Assessment and Plan - Patient/Caregiver Discharge Instructions Activity: resume usual activities as tolerated Diet: regular diet - Follow up Plan [facility] up with: [facility]Outside] - 10/26/17 8:30 am (The above appointment is with Tania Calderon, counselor at [facility]. Your first appointment will be very thorough. You will be completing paperwork (please arrive 30 minutes early for your appointment), meeting with a counselor and a nurse, and developing a treatment plan. You will receive follow- up appointments for on-going services, which could include community support, mental health and substance abuse counseling, groups/partial hospitalization programming, medication assisted treatment, and psychiatric medication management. Please bring the following with you to your first visit to the clinic: 1) proof of household income (two consecutive pay stubs, social security award letter, bank statement, statement letter from [facility], child support statement, IRS 1040 or W2 form, or a statement from the person who financially supports you stating they help provide for your basic needs), 2) proof of residency (drivers license, a piece of mail showing your address, a statement from person you live with verifying you live at their address), 3) your social security card, 4) photo ID, and 5) your insurance card (if you have commercial insurance you must call to obtain a prior authorization number before you arrive to your first appointment). If you do not bring these items, you will not be seen. ) Deidra Ortiz, JOE [Advanced Practice Nurse] - 10/30/17 4:15 pm (The above appointment is with Deidra Ortiz for primary health care and medication management services. Please arrive 10 minutes early to complete the check-in process. Please also bring your insurance card (or HCAP award letter), photo ID , and all medications in their original bottles to this appointment. If you are unable to keep this appointment, 24 hour business notice of cancellation is expected. The above appointment(s) reflects first availability. You may contact the office regularly to check for cancellations that may allow you to be seen sooner.) Functional capacity at discharge: independent ambulation Overall status at discharge: Stable Disposition: Home, Self-Care Quality - Multiple Antipsychotics Patient discharged on 2 or more antipsychotic medications: No Procedures - Procedures Procedures: Medication Management, Crisis Stabilization, Supportive Therapy, Group Therapy, Psychoeducational Therapy
== END 2017-10-24 13:30 | disposition home or self-care (01) | DRG 812 ==
LOC: EMEROO 22:13 → 1ANU 22:13 → SUATTDRO 10-22 06:40 → 1ANU 10-22 06:57
PROVIDERS: ADMIT Psychiatry & Neurology Psychiatry; ATTEND Student in an Organized Health Care Education/Training Program

== ENCOUNTER 2018-10-18 23:14 | Observation (INO) ==
[2018-10-18 23:55] LABS: Amphetamine Screen,Urine Negative ng/mL (Cutoff=1000); Barbiturate Screen,Urine Negative ng/mL (Cutoff=200); Benzodiazepines Screen,Urine Negative ng/mL (Cutoff=200); Cannabinoid Screen,Urine Negative ng/mL (Cutoff = 50); Cocaine Screen,Urine Negative ng/mL (Cutoff= 300); Opiate Screen,Urine Negative ng/mL (Cutoff=300); Phencyclidine Screen,Urine Negative ng/mL (Cutoff=25)
[2018-10-19] LABS: Basophils % 0.3 %; Eosinophils % 0.1 %; Hematocrit 43.7 % (35.3-44.9); Hemoglobin 14.7 g/dL (11.5-15.4); Immature Granulocytes % 0.2 % (0-4); Lymphocytes # 3.5 K/mcL (0.6-4.6); Lymphocytes % 27.4 %; Mean Corpuscular HGB Conc 33.6 g/dL (31.6-35.5); Mean Corpuscular Hemoglobin 29.8 pg (28.0-33.3); Mean Corpuscular Volume 88.5 fL (83.0-100.0); Mean Platelet Volume 9.3 fL (9.4-12.4); Monocytes # 0.8 K/mcL (0.0-1.3); Monocytes % 6.5 %; Neutrophils # 8.3 K/mcL (1.6-8.9); Platelet Count 330 K/mcL (140-400); Red Blood Count 4.94 M/mcL (3.82-4.97); Red Cell Distribution Width 13.5 % (11.5-14.5); Segmented Neutrophils % 65.5 %
--- NOTE | 2018-10-19 00:01 | Emergency Department Note ---
Disposition Clinical Impression: Suicidal overdose Disposition: Admitted As Inpatient Condition: Serious Referrals: Chel Padilla, [facility] [employer] [employer] [Primary Care Provider] - Forms: ED Satisfaction Letter Time of Disposition: 01:12 Psych HPI - General Chief Complaint: ED Psychiatric Symptoms Stated Complaint: SI/Took a Handful on Effexor and Prazosin Time Seen by Provider: 10/18/18 23:18 Nursing Notes Reviewed: Yes Vital Signs Reviewed: Yes - History of Present Illness HPI Narrative: 38-year-old female presents from home via EMS for evaluation after intentional ingestion. Patient's intent was suicide. This is her fourth attempt suicide. She previously attempted cutting as well is one of these attempts. Most recent attempt was 6 months ago. Nothing notable has changed in the last 6 months towards today's attempt. At 22:15, patient ingested "a handful of pills." Her boyfriend at bedside brings in 2 bottles are empty. Patient states those bottles were full for her indigestion. They are venlafaxine HCL ER 150 mg capsules quantity 30 (4500mg total) and prazosin 1 mg capsule quantity 60 (60mg total). Habits: current everyday smoker, occasional THC. No IVDA History of depression with prior suicide attempts. ROS: Pos: sleepy. Neg: pain, co-ingestants, self harm, chest pain, abdominal pain, nausea, v omiting, diarrhea. - Related Data Home Medications Medication Instructions Recorded Confirmed Atenolol [Tenormin] 25 mg PO DAILY 03/29/17 12/26/17 Pantoprazole Sodium 40 mg PO DAILY 03/29/17 12/26/17 Previous Rx's Medication Instructions Recorded Atenolol [Tenormin] 25 mg PO DAILY #10 tablet 06/25/18 Pantoprazole Sodium 40 mg PO DAILY #10 tablet. 06/25/18 Allergies Allergy/AdvReac Type Severity Reaction Status Date / Time Sulfa (Sulfonamide Allergy Anaphylaxis Verified 10/18/18 23:22 Antibiotics) All systems ED: reviewed and negative except as stated. 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 Head: atraumatic, normocephalic Eye: normal appearance, PERRL, EOMI, no scleral icterus, no conjunctival injection ENT: mucous membranes moist, normal external ear exam Neck: normal inspection, trachea midline, full ROM Chest: normal inspection, symmetric chest rise Respiratory: Good respiratory effort. Bilateral breath sounds are clear without wheezing, crackles, or rhonchi. Cardiovascular: Regular rate and rhythm. No clicks, rubs, gallops, or murmors. Normal heart sounds. Abdomen: Bowel sounds present normoactive. Abdomen is soft, nondistended, and nontender. No guarding or rebound. No organomegaly noted. Musculoskeletal: Spontaneously moving all extremities. Skin: warm, dry, intact. Neuro: GCS 15. No focal neurologic deficits observed. Psych: Patient's affect is appropriate for situation. Course Course Narrative: 23:50 Patient is somnolent. Tachycardic to 103. No hypotension. 00:00 Discussed the patient with Poison Control. Recommendations are symptomatic care. No charcoal. Long observation. Venlafaxine ER 11-18 hours. Monitor for QTc for prolongation. EKG #1 EKG dated October 09 923:55 interpreted as sinus tachycardia with rate of 104. AL 139, QRS 87, QTC 423. Normal axis. Nonspecific ST-T changes. Compared to previous dated 10/21/2017 showing no acute ischemic changes or comparison. Throughout the patient's ED stay she has been maintaining her saturations on room air. She is neither hypotensive nor bradycardic. I discussed the above with the admitting hospitalist, Dr. Valencia, who agrees to accept the patient for continued medication monitoring. Recommended patient be placed on the stepdown unit for closer monitoring of her blood pressure and cardiac status. Vital Signs Temperature 98.6 F 10/18/18 23:19 Pulse Rate 103 10/18/18 23:19 Respiratory Rate 16 10/18/18 23:19 Blood Pressure 129/89 10/18/18 23:19 O2 Sat by Pulse Oximetry 97 10/18/18 23:19 Temperature 98.6 F 10/18/18 23:59 Pulse Rate 103 10/18/18 23:59 Respiratory Rate 16 10/18/18 23:59 Blood Pressure 129/89 10/18/18 23:59 O2 Sat by Pulse Oximetry 97 10/18/18 23:59 Oxygen Delivery Oxygen Delivery Room Air Psych - Lab Data Result diagrams: 10/18/18 23:39 10/18/18 23:39 Lab Results 10/18/18 10/18/18 10/18/18 Range/Units 23:25 23:25 23:25 WBC (4.3-11.1) K/mcL RBC (3.82-4.97) M/mcL Hgb (11.5-15.4) g/dL Hct (35.3-44.9) % MCV (83.0-100.0) fL MCH (28.0-33.3) pg MCHC (31.6-35.5) g/dL RDW (11.5-14.5) % Plt Count (140-400) K/mcL MPV (9.4-12.4) fL Immature Gran % (0-4) % Seg Neutrophils % % Lymphocytes % % Monocytes % % Eosinophils % % Basophils % % Neutrophils # (1.6-8.9) K/mcL Lymphocytes # (0.6-4.6) K/mcL Monocytes # (0.0-1.3) K/mcL Eosinophils # (0.0-0.6) K/mcL Basophils # (0.0-0.2) K/mcL Sodium (136-145) mEq/L Potassium (3.5-5.1) mEq/L Chloride (98-107) mEq/L Carbon Dioxide (23-29) mEq/L BUN (6-20) mg/dL Creatinine (0.60-1.20) mg/dL Est GFR ( Amer) (> 60) Est GFR (Non-Af Amer) (> 60) BUN/Creatinine Ratio (6-26) Glucose (70-105) mg/dL Calculated Osmolality (280-300) Calcium (8.6-10.3) mg/dL Urine Color Yellow (Yellow) Urine Clarity Clear (Clear) Urine pH 6.5 (5.0-8.0) pH Units Ur Specific [place] 1.007 L (1.010-1.025) Urine Protein Negative (Neg-Trace) mg/dL Urine Glucose (UA) Normal (Normal) mg/dL Urine Ketones Negative (Negative) mg/dL Urine Blood Trace H (Negative) Urine Nitrite Negative (Negative) Urine Bilirubin Negative (Negative) Urine Urobilinogen Normal (Normal) mg/dL Ur Leukocyte Esterase Negative (Negative) Urine Microscopic RBC 0-3 (0-3) per hpf Urine Microscopic WBC 0-3 (0-3) per hpf Ur Squamous Epith Cells Moderate H (None-Few) per lpf Urine Bacteria Few (None-Few) per hpf Urine Test Negative (Negative) Salicylates (15.0-30.0) mg/dL Urine Opiates Screen Negative (Kyrywm=602) ng/mL Acetaminophen (10-20) mcg/mL Ur Barbiturates Screen Negative (Twuuoa=538) ng/mL Ur Phencyclidine Scrn Negative (Cutoff=25) ng/mL Ur Amphetamines Screen Negative (Txwtme=5637) ng/mL U Benzodiazepines Scrn Negative (Uheacj=985) ng/mL Urine Cocaine Screen Negative (Cutoff= 300) ng/mL U Marijuana (THC) Screen Negative (Cutoff = 50) ng/mL Ur Drug Screen Interp See Below Ethyl Alcohol (Less than 10) mg/dL 10/18/18 10/18/18 Range/Units 23:39 23:39 WBC 12.7 H (4.3-11.1) K/mcL RBC 4.94 (3.82-4.97) M/mcL Hgb 14.7 (11.5-15.4) g/dL Hct 43.7 (35.3-44.9) % MCV 88.5 (83.0-100.0) fL MCH 29.8 (28.0-33.3) pg MCHC 33.6 (31.6-35.5) g/dL RDW 13.5 (11.5-14.5) % Plt Count 330 (140-400) K/mcL MPV 9.3 L (9.4-12.4) fL Immature Gran % 0.2 (0-4) % Seg Neutrophils % 65.5 % Lymphocytes % 27.4 % Monocytes % 6.5 % Eosinophils % 0.1 % Basophils % 0.3 % Neutrophils # 8.3 (1.6-8.9) K/mcL Lymphocytes # 3.5 (0.6-4.6) K/mcL Monocytes # 0.8 (0.0-1.3) K/mcL Eosinophils # 0.0 (0.0-0.6) K/mcL Basophils # 0.0 (0.0-0.2) K/mcL Sodium 137 (136-145) mEq/L Potassium 3.9 (3.5-5.1) mEq/L Chloride 108 H (98-107) mEq/L Carbon Dioxide 23 (23-29) mEq/L BUN 6 (6-20) mg/dL Creatinine 0.76 (0.60-1.20) mg/dL Est GFR ( Amer) > 60 (> 60) Est GFR (Non-Af Amer) > 60 (> 60) BUN/Creatinine Ratio 8 (6-26) Glucose 105 (70-105) mg/dL Calculated Osmolality 282 (280-300) Calcium 8.9 (8.6-10.3) mg/dL Urine Color (Yellow) Urine Clarity (Clear) Urine pH (5.0-8.0) pH Units Ur Specific [place] (1.010-1.025) Urine Protein (Neg-Trace) mg/dL Urine Glucose (UA) (Normal) mg/dL Urine Ketones (Negative) mg/dL Urine Blood (Negative) Urine Nitrite (Negative) Urine Bilirubin (Negative) Urine Urobilinogen (Normal) mg/dL Ur Leukocyte Esterase (Negative) Urine Microscopic RBC (0-3) per hpf Urine Microscopic WBC (0-3) per hpf Ur Squamous Epith Cells (None-Few) per lpf Urine Bacteria (None-Few) per hpf Urine Test (Negative) Salicylates < 2.5 L (15.0-30.0) mg/dL Urine Opiates Screen (Mkadgy=436) ng/mL Acetaminophen < 10 L (10-20) mcg/mL Ur Barbiturates Screen (Yigdpe=654) ng/mL Ur Phencyclidine Scrn (Cutoff=25) ng/mL Ur Amphetamines Screen (Ecrxoc=6163) ng/mL U Benzodiazepines Scrn (Htwpft=420) ng/mL Urine Cocaine Screen (Cutoff= 300) ng/mL U Marijuana (THC) Screen (Cutoff = 50) ng/mL Ur Drug Screen Interp Ethyl Alcohol < 10 (Less than 10) mg/dL Psychiatric Medical Clearance - Medical Clearance Checklist Medical History: No Social History Section defined Current Vitals: Last Vital Signs Temp 98.6 F 10/18/18 23:59 Pulse 103 10/18/18 23:59 Resp 16 10/18/18 23:59 BP 129/89 10/18/18 23:59 Pulse Ox 97 10/18/18 23:59 Psychiatric Lab Panel: Drug Levels and Toxicity 10/18/18 10/18/18 23:25 23:39 Urine Opiates Screen Negative Acetaminophen < 10 L Ur Barbiturates Screen Negative Ur Phencyclidine Scrn Negative Ur Amphetamines Screen Negative U Benzodiazepines Scrn Negative Urine Cocaine Screen Negative U Marijuana (THC) Screen Negative Ethyl Alcohol < 10 Abnormal Labs: Abnormal lab results WBC 12.7 K/mcL (4.3-11.1) H 10/18/18 23:39 MPV 9.3 fL (9.4-12.4) L 10/18/18 23:39 Chloride 108 mEq/L (98-107) H 10/18/18 23:39 Ur Specific [place] 1.007 (1.010-1.025) L 10/18/18 23:25 Urine Blood Trace (Negative) H 10/18/18 23:25 Ur Squamous Epith Cells Moderate per lpf (None-Few) H 10/18/18 23:25 Salicylates < 2.5 mg/dL (15.0-30.0) L 10/18/18 23:39 Acetaminophen < 10 mcg/mL (10-20) L 10/18/18 23:39 Statement of Medical Clearance: I have evaluated the patient, reviewed diagnostic information, and certify that the patient's medical condition is sufficiently stable that transfer to the psychiatric unit does not pose a significant risk of deterioration. Attestation Statement - Attestation Attestation: I, Jefferson Cohn DO, examined this patient [id number] and my medical decision-making was reviewed with Dr. Juan Packer, Resident Physician. I agree with the documented findings, disposition and treatment plan as described except to the extent set forth below. Please see my progress notes for details.
[2018-10-19 00:09] LABS: BUN/Creatinine Ratio 8 (6-26); Blood Urea Nitrogen 6 mg/dL (6-20); Carbon Dioxide 23 mEq/L (23-29); Chloride 108 mEq/L (98-107); Potassium 3.9 mEq/L (3.5-5.1); Sodium 137 mEq/L (136-145); eGFR For Non-African Americans > 60 (> 60)
[2018-10-19 00:10] LABS: Acetaminophen < 10 mcg/mL (10-20); Calcium 8.9 mg/dL (8.6-10.3); Ethanol < 10 mg/dL (Less than 10); Glucose 105 mg/dL (70-105); Osmolality,Calculated 282 (280-300); Salicylate < 2.5 mg/dL (15.0-30.0)
[2018-10-19 00:42] LABS: Bilirubin,Urine Negative (Negative); Clarity,Urine Clear (Clear); Color,Urine Yellow (Yellow); Glucose,Urine (UA) Normal (Normal); Ketones,Urine Negative (Negative)
[2018-10-19 00:43] LABS: Blood,Urine Trace (Negative); Leukocyte Esterase,Urine Negative (Negative); Nitrite,Urine Negative (Negative); PH,Urine 6.5 pH Units (5.0-8.0); Protein,Urine Negative (Neg-Trace); Specific Gravity,Urine 1.007 (1.010-1.025); Urobilinogen,Urine Normal (Normal)
[2018-10-19 00:47] LABS: RBC,Urine 0-3 per hpf (0-3); Squamous Epithelial Cell,Urine Moderate per lpf (None-Few); WBC,Urine 0-3 per hpf (0-3)
[2018-10-19] MEDS ORDERED: 0.9 % Sodium Chloride 1,000 ML IVC ONE (00:50)
--- NOTE | 2018-10-19 00:54 | Emergency Department Note ---
Disposition Clinical Impression: Suicidal overdose Disposition: Admitted As Inpatient Condition: Fair Referrals: Chel Padilla, [employer] [employer] [Primary Care Provider] - Forms: ED Satisfaction Letter Time of Disposition: 01:41 General Adult HPI - General Chief complaint: ED Psychiatric Symptoms Stated complaint: SI/Took a Handful on Effexor and Prazosin Time Seen by Provider: 10/18/18 23:18 Source: patient, family Limitations: no limitations - History of Present Illness Pain Scale: 0 - Related Data Home Medications Medication Instructions Recorded Confirmed Atenolol [Tenormin] 25 mg PO DAILY 03/29/17 12/26/17 Pantoprazole Sodium 40 mg PO DAILY 03/29/17 12/26/17 Previous Rx's Medication Instructions Recorded Atenolol [Tenormin] 25 mg PO DAILY #10 tablet 06/25/18 Pantoprazole Sodium 40 mg PO DAILY #10 tablet. 06/25/18 Allergies Allergy/AdvReac Type Severity Reaction Status Date / Time Sulfa (Sulfonamide Allergy Anaphylaxis Verified 10/18/18 23:22 Antibiotics) Past Medical History - Past Medical History Medical history: Reports: GERD, hypertension Surgical history: Reports: breast surgery, orthopedic, other, other Psychiatric history: Reports: anxiety, depression, prior suicide attempt, previous psychiatric hospitalization [employer] history: Reports: bilateral tubal ligation - Social History Smoking Status: Current every day smoker Smokeless Tobacco Status: No Alcohol use: Reports: none Drug use: Reports: marijuana Physical Exam - General Limitations: no limitations General appearance: alert, in no apparent distress Course Vital Signs Temperature 98.6 F 10/18/18 23:19 Pulse Rate 103 10/18/18 23:19 Respiratory Rate 16 10/18/18 23:19 Blood Pressure 129/89 10/18/18 23:19 O2 Sat by Pulse Oximetry 97 10/18/18 23:19 Temperature 98.6 F 10/18/18 23:59 Pulse Rate 103 10/18/18 23:59 Respiratory Rate 16 10/18/18 23:59 Blood Pressure 129/89 10/18/18 23:59 O2 Sat by Pulse Oximetry 97 10/18/18 23:59 Oxygen Delivery Oxygen Delivery Room Air Medical Decision Making - Lab Data Result diagrams: 10/18/18 23:39 10/18/18 23:39 Lab Results 03/29/19 03/29/19 03/29/19 Range/Units 23:25 23:25 23:25 WBC (4.3-11.1) K/mcL RBC (3.82-4.97) M/mcL Hgb (11.5-15.4) g/dL Hct (35.3-44.9) % MCV (83.0-100.0) fL MCH (28.0-33.3) pg MCHC (31.6-35.5) g/dL RDW (11.5-14.5) % Plt Count (140-400) K/mcL MPV (9.4-12.4) fL Immature Gran % (0-4) % Seg Neutrophils % % Lymphocytes % % Monocytes % % Eosinophils % % Basophils % % Neutrophils # (1.6-8.9) K/mcL Lymphocytes # (0.6-4.6) K/mcL Monocytes # (0.0-1.3) K/mcL Eosinophils # (0.0-0.6) K/mcL Basophils # (0.0-0.2) K/mcL Sodium (136-145) mEq/L Potassium (3.5-5.1) mEq/L Chloride (98-107) mEq/L Carbon Dioxide (23-29) mEq/L BUN (6-20) mg/dL Creatinine (0.60-1.20) mg/dL Est GFR ( Amer) (> 60) Est GFR (Non-Af Amer) (> 60) BUN/Creatinine Ratio (6-26) Glucose (70-105) mg/dL Calculated Osmolality (280-300) Calcium (8.6-10.3) mg/dL Urine Color Yellow (Yellow) Urine Clarity Clear (Clear) Urine pH 6.5 (5.0-8.0) pH Units Ur Specific [place] 1.007 L (1.010-1.025) Urine Protein Negative (Neg-Trace) mg/dL Urine Glucose (UA) Normal (Normal) mg/dL Urine Ketones Negative (Negative) mg/dL Urine Blood Trace H (Negative) Urine Nitrite Negative (Negative) Urine Bilirubin Negative (Negative) Urine Urobilinogen Normal (Normal) mg/dL Ur Leukocyte Esterase Negative (Negative) Urine Microscopic RBC 0-3 (0-3) per hpf Urine Microscopic WBC 0-3 (0-3) per hpf Ur Squamous Epith Cells Moderate H (None-Few) per lpf Urine Bacteria Few (None-Few) per hpf Urine Test Negative (Negative) Salicylates (15.0-30.0) mg/dL Urine Opiates Screen Negative (Tjjlzk=416) ng/mL Acetaminophen (10-20) mcg/mL Ur Barbiturates Screen Negative (Ihxoev=301) ng/mL Ur Phencyclidine Scrn Negative (Cutoff=25) ng/mL Ur Amphetamines Screen Negative (Uysgun=8909) ng/mL U Benzodiazepines Scrn Negative (Vvbguh=081) ng/mL Urine Cocaine Screen Negative (Cutoff= 300) ng/mL U Marijuana (THC) Screen Negative (Cutoff = 50) ng/mL Ur Drug Screen Interp See Below Ethyl Alcohol (Less than 10) mg/dL 10/18/18 10/18/18 Range/Units 23:39 23:39 WBC 12.7 H (4.3-11.1) K/mcL RBC 4.94 (3.82-4.97) M/mcL Hgb 14.7 (11.5-15.4) g/dL Hct 43.7 (35.3-44.9) % MCV 88.5 (83.0-100.0) fL MCH 29.8 (28.0-33.3) pg MCHC 33.6 (31.6-35.5) g/dL RDW 13.5 (11.5-14.5) % Plt Count 330 (140-400) K/mcL MPV 9.3 L (9.4-12.4) fL Immature Gran % 0.2 (0-4) % Seg Neutrophils % 65.5 % Lymphocytes % 27.4 % Monocytes % 6.5 % Eosinophils % 0.1 % Basophils % 0.3 % Neutrophils # 8.3 (1.6-8.9) K/mcL Lymphocytes # 3.5 (0.6-4.6) K/mcL Monocytes # 0.8 (0.0-1.3) K/mcL Eosinophils # 0.0 (0.0-0.6) K/mcL Basophils # 0.0 (0.0-0.2) K/mcL Sodium 137 (136-145) mEq/L Potassium 3.9 (3.5-5.1) mEq/L Chloride 108 H (98-107) mEq/L Carbon Dioxide 23 (23-29) mEq/L BUN 6 (6-20) mg/dL Creatinine 0.76 (0.60-1.20) mg/dL Est GFR ( Amer) > 60 (> 60) Est GFR (Non-Af Amer) > 60 (> 60) BUN/Creatinine Ratio 8 (6-26) Glucose 105 (70-105) mg/dL Calculated Osmolality 282 (280-300) Calcium 8.9 (8.6-10.3) mg/dL Urine Color (Yellow) Urine Clarity (Clear) Urine pH (5.0-8.0) pH Units Ur Specific [place] (1.010-1.025) Urine Protein (Neg-Trace) mg/dL Urine Glucose (UA) (Normal) mg/dL Urine Ketones (Negative) mg/dL Urine Blood (Negative) Urine Nitrite (Negative) Urine Bilirubin (Negative) Urine Urobilinogen (Normal) mg/dL Ur Leukocyte Esterase (Negative) Urine Microscopic RBC (0-3) per hpf Urine Microscopic WBC (0-3) per hpf Ur Squamous Epith Cells (None-Few) per lpf Urine Bacteria (None-Few) per hpf Urine Test (Negative) Salicylates < 2.5 L (15.0-30.0) mg/dL Urine Opiates Screen (Hcqdvj=220) ng/mL Acetaminophen < 10 L (10-20) mcg/mL Ur Barbiturates Screen (Qpzwcj=601) ng/mL Ur Phencyclidine Scrn (Cutoff=25) ng/mL Ur Amphetamines Screen (Tnsnke=0309) ng/mL U Benzodiazepines Scrn (Vhbjja=635) ng/mL Urine Cocaine Screen (Cutoff= 300) ng/mL U Marijuana (THC) Screen (Cutoff = 50) ng/mL Ur Drug Screen Interp Ethyl Alcohol < 10 (Less than 10) mg/dL Attestation Statement - Attestation Attestation: I, Jefferson Cohn DO, examined this patient [id number] and my medical decision-making was reviewed with Dr. Juan Packer, Resident Physician. I agree with the documented findings, disposition and treatment plan as described except to the extent set forth below. Please see my progress notes for details. 38-year-old female presents emergency room with described ingestion of Effexor and prazosin. Patient at this and attempt to kill herself. She took 2 full bottles of medication. Patient was alert and oriented to time of arrival. She is denying chest pain or shortness of breath. Denies any fevers or chills. No nausea vomiting or diarrhea at this time. Denies any headache or vision change. Patient is alert she is oriented. Her oropharynx is patent her trachea is midline. Lungs are clear. Heart is regular. Abdomen is soft. No guarding no rigidity. Medication was ingested approximately one hour and 45 minutes prior to coming in. Poison Control Center was contacted. Labs including a CBC chemistry on psychiatric screening evaluation with established and started. EKG was collected. Patient will be placed on a property assessment monitor IV access will be obtained fluids to bilateral large-bore IVs. Fluids will be given. Patient will monitor closely in the emergency department. On physical exam she is otherwise asymptomatic and unremarkable. She is describing slight somnolence. Otherwise she is stable. Disposition will be determined once full workup treatment course and evaluation abdomen established. See detailed documentation the physical exam, medical intervention, medical decision-making and disposition in the resident physician's note. Patient will be medically admitted once the workup and treatment course I been established. 0125 Patient has negative labs. Patient is been hemodynamically stable mentating appropriately. The hospitalist Dr. Valencia reviewed the case. He had no other recommendations or concerns. Poison Control Center recommended symptomatic control management. EKG had normal intervals with no acute abnormality. Patient will be monitored here in the emergency department until the admission process is completed.
[2018-10-19 01:09] LABS: Bacteria,Urine Few per hpf (None-Few)
[2018-10-19] MEDS ORDERED: Naloxone 0.4 MG/ML INJ IVP PRN (02:51)
[2018-10-19] MEDS ORDERED: Ondansetron 4 MG/2 ML VIAL IVP PRN (02:51)
--- NOTE | 2018-10-19 04:43 | Internal Med History&Physical ---
<Noa Valenciakim - Last Filed: 10/19/18 06:52> Date of Encounter: 10/19/18 Internal Medicine - H&P: Meds Atenolol [Tenormin] 25 mg PO DAILY 03/29/17 [History] Pantoprazole Sodium 40 mg PO DAILY 03/29/17 [History] Atenolol [Tenormin] 25 mg PO DAILY #10 tablet 06/25/18 [Rx] Pantoprazole Sodium 40 mg PO DAILY #10 tablet. 06/25/18 [Rx] Allergy/AdvReac Type Severity Reaction Status Date / Time Sulfa (Sulfonamide Allergy Anaphylaxis Verified 10/18/18 23:22 Antibiotics) All Systems PM: A 10-system review of systems was performed and is negative for pertinent findings except as documented above in the HPI. - Constitutional Vitals: Temp Pulse Resp BP Pulse Ox 97.8 F 99 18 102/85 99 10/19/18 02:39 10/19/18 02:39 10/19/18 02:39 10/19/18 02:39 10/19/18 03:14 Internal Med - H&P Results - Labs CBC & Chem 7: 10/18/18 23:39 10/18/18 23:39 Labs: Short CBC 10/18/18 Range/Units 23:39 WBC 12.7 H (4.3-11.1) K/mcL Hgb 14.7 (11.5-15.4) g/dL Hct 43.7 (35.3-44.9) % Plt Count 330 (140-400) K/mcL Neutrophils # 8.3 (1.6-8.9) K/mcL BMP 10/18/18 23:39 Sodium 137 Potassium 3.9 Chloride 108 H Carbon Dioxide 23 BUN 6 Creatinine 0.76 Glucose 105 Calcium 8.9 Urine 10/18/18 Range/Units 23:25 Urine Color Yellow (Yellow) Urine Clarity Clear (Clear) Urine pH 6.5 (5.0-8.0) pH Units Ur Specific [place] 1.007 L (1.010-1.025) Urine Protein Negative (Neg-Trace) mg/dL Urine Glucose (UA) Normal (Normal) mg/dL - Time Spent With Patient Total time spent is greater than 50% in coordination of care (as documented) at patient's floor/unit and/or counseling patient: - Attending Attestation I performed a history and physical exam of the patient and discussed management with the resident. I reviewed the resident's note and agree with the documented findings and plan of care. 38 year old woman with a remarkable psychiatric history presenting with intentional overdose on prazosin and venlafaxine. Currently asymptomatic. QTc and hemodynamics within normal limits. Will continue to monitor BP and watch on telemetry. Serial EKGs. Psych consult with mandatory hold until then. RALEIGH CAM. <Brittney Siu - Last Filed: 10/19/18 07:52> Date of Encounter: 10/19/18 Time of Encounter: 03:22 Internal Medicine - H&P: HPI Chief complaint: medication overdose Admitted From: Home History of present illness: Ms. Adams is a 38 year old female with a history of multiple suicide attempts, depression, and trauma who presented to the ER after her boyfriend found 2 empty bottles of pills in the bathroom that she had ingested. Patient's boyfriend Vijay is at bedside. Patient is believed to have ingested venlafaxine HCL ER 150 mg capsules quantity 30 (4500mg total) and Prazosin 1 mg capsule quantity 60 (60mg total). She admits that this was a suicide attempt in that she, "felt everyone would be better off without her." Her boyfriend states that he was home in another room when the patient ingested the pills in the bathroom. She states that she has had regular, daily thoughts of suicide, even on her "good days." She denies talking to anyone about her thoughts or feelings. She states that she is not currently seeing a counselor or psychiatrist and hasn't for over a year. She states that she thinks her medication does help some. She was previously doing tele-medicine counseling, which she states was not helpful. She explains that the reason she does not talk to anyone about her problems is because she does not want to burden them. Patient admits to previous suicide attempts which involved medication ingestion as well as cutting herself with a knife. She states that she does not know why she is depressed. She also admits that she feels no emotion when talking about these issues. She admits to nausea, headache, lightheadedness upon movement, and tremor (which she states she has since she was a child). She denies any chest pain, palpitations, SOB, abdominal pain, vomiting, or diarrhea. ER course: Afebrile, HR 82, RR 18, BP 103/69, 96% on room air EKG sinus tachycardia rate 104, ME 139, QRS 87, QTC 423. No acute ischemic changes on comparison. s/p 1L NS fluid bolus Poison control recommended symptomatic care. No charcoal. Monitor for QTC prolongation. Venlafaxine ER 11-18 hours. Past Med Surg Social Fam HX - Past Medical History Medical history: GERD, hypertension Additional medical history: sleep apnea, uses cpap Psychiatric history: anxiety, depression, prior suicide attempt, previous psychiatric hospitalization - Past Surgical History Surgical History: breast surgery, orthopedic, other, other Additional surgical history: tubal - Social History Smoking Status: Current every day smoker Smokeless Tobacco Status: No Alcohol use: none Drug use: marijuana - Family History Mother Adopted: No Family Member Ethnicity: Non- Living Status: Still Living Hx Family Cardiac Disorders: Yes (HTN) Hx Family Respiratory Disorders: No Hx Family Cancer: No Hx Family GI Disorders: No Hx Family Endocrine Disorder: No Hx Family Neuromuscular Disorders: No Hx Family Neurologic Disorders: Yes (Migraines) Hx Family HEENT Disorders: No Hx Family Autoimmune Disorders: No Sister Adopted: No Family Member Ethnicity: Non- Living Status: Still Living Hx Family Cardiac Disorders: No Hx Family Respiratory Disorders: No Hx Family Cancer: No Hx Family GI Disorders: No Hx Family Endocrine Disorder: No Hx Family Neuromuscular Disorders: No Hx Family Neurologic Disorders: Yes Hx Family HEENT Disorders: No Hx Family Autoimmune Disorders: No Hx Family Psychosocial Disorders: Yes (depression) All Systems PM: A 10-system review of systems was performed and is negative for pertinent findings except as documented above in the HPI. - Constitutional Constitutional: no chills, no fever(s) - EENT Eyes: no blurry vision, no change in vision - Cardiovascular Cardiovascular ROS IM: dyspnea on exertion, lightheadedness, no chest pain, no edema, no irregular heart rhythm, no palpitations, no syncope - Respiratory Respiratory: dyspnea on exertion, no cough - Gastrointestinal Gastrointestinal: nausea, no abdominal pain, no constipation, no diarrhea, no vomiting - Musculoskeletal Musculoskeletal ROS IM: no numbness, no tingling - Integumentary Integumentary IM: no rash - Neurological Neurological ROS: headache(s), no behavioral changes, no confusion, no numbness, no tingling - Psychiatric Psychiatric: depression, hopelessness, suicidal ideation - Constitutional Vitals: Temp Pulse Resp BP Pulse Ox 97.8 F 99 18 102/85 99 10/19/18 02:39 10/19/18 02:39 10/19/18 02:39 10/19/18 02:39 10/19/18 03:14 General appearance: Present: A&O X 3, no acute distress, answers questions appropriately Exam: see above - Head Head exam: Present: atraumatic, normocephalic - Eye Eye exam: Present: EOMI, PERRL, conjuntiva pink, sclera anicteric - ENT ENT exam: Present: mucous membranes moist - Neck Neck exam general surgery: Present: trachea midline - Respiratory Respiratory exam: Present: CTAB. Absent: accessory muscle use, rales, rhonchi, wheezes - Cardiovascular Cardiovascular exam: Present: RRR, +S1, +S2. Absent: diastolic murmur, systolic murmur - GI/Abdominal GI/Abdominal exam: Present: normal bowel sounds, soft, no peritoneal signs. Ab sent: distended, tenderness - Extremities Exam Extremities exam: Present: warm, radial pulses palpable and symmetrical. Absent: cyanotic, pedal edema - Neurological Exam Neurological exam: Present: oriented X3, no focal deficits. Absent: pronater drift, facial droop, speech deficit Additional comments: shaking noted in left LE throughout conversation, however resolution noted during examination. Resumed upon completion of exam. - Psychiatric Psychiatric exam: Present: depressed, flat affect, suicidal ideation - Skin Skin exam: Present: dry, intact, warm. Absent: cyanosis, diaphoretic, rash Internal Med - H&P Results - Labs CBC & Chem 7: 10/19/18 06:25 10/19/18 06:25 Labs: Short CBC 10/18/18 Range/Units 23:39 WBC 12.7 H (4.3-11.1) K/mcL Hgb 14.7 (11.5-15.4) g/dL Hct 43.7 (35.3-44.9) % Plt Count 330 (140-400) K/mcL Neutrophils # 8.3 (1.6-8.9) K/mcL BMP 10/18/18 23:39 Sodium 137 Potassium 3.9 Chloride 108 H Carbon Dioxide 23 BUN 6 Creatinine 0.76 Glucose 105 Calcium 8.9 Urine 10/18/18 Range/Units 23:25 Urine Color Yellow (Yellow) Urine Clarity Clear (Clear) Urine pH 6.5 (5.0-8.0) pH Units Ur Specific [place] 1.007 L (1.010-1.025) Urine Protein Negative (Neg-Trace) mg/dL Urine Glucose (UA) Normal (Normal) mg/dL - Assessment and Plan (1) Suicidal overdose Current Visit: Yes Status: Acute Assessment and plan: History of multiple suicide attempts Patient admits to attempting suicide by medication overdose with venlafaxine HCl ER and prazosin 1 mg Complaint of nausea, lightheadedness, headache. Hemodynamically stable. EKG sinus tachycardia rate 104, ME 139, QRS 87, QTC 423. Poison control contacted by ER, recommended symptomatic management and observation [place] slip due to endorsing SI, psych consulted Close cardiac monitoring for QTc prolongation Closely monitor BP due to possible hypotension with prazosin Continue maintenance IV fluids Continue antiemetics Continue one-to-one sitter Qualifiers: Encounter type: initial encounter Qualified Code(s): T50.902A - Poisoning by unspecified drugs, medicaments and biological substances, intentional self- harm, initial encounter (2) Major depressive disorder Current Visit: Yes Status: Chronic Qualifiers: Major depression recurrence: recurrent Active/Remission status: currently active Major depression episode severity: severe Psychotic features: without psychotic features Qualified Code(s): F33.2 - Major depressive disorder, recurrent severe without psychotic features (3) Posttraumatic stress disorder Current Visit: Yes Status: Chronic (4) DVT prophylaxis Current Visit: Yes Status: Acute Assessment and plan: SQ Heparin - Time Spent With Patient Total time spent is greater than 50% in coordination of care (as documented) at patient's floor/unit and/or counseling patient: 25 - 35 minutes
[2018-10-19] MEDS ORDERED: Ringers Solution, Lactated 1,000 ML IVC SCH (05:45)
[2018-10-19] MEDS ORDERED: *HR* Heparin 5,000 UNIT/ML VIAL SQ SCH (06:00)
[2018-10-19 06:54] LABS: Hematocrit 39.2 % (35.3-44.9); Mean Corpuscular HGB Conc 32.7 g/dL (31.6-35.5); Mean Corpuscular Hemoglobin 29.2 pg (28.0-33.3); Mean Corpuscular Volume 89.5 fL (83.0-100.0); Mean Platelet Volume 9.5 fL (9.4-12.4); Platelet Count 292 K/mcL (140-400); Red Blood Count 4.38 M/mcL (3.82-4.97); Red Cell Distribution Width 13.5 % (11.5-14.5)
[2018-10-19 06:59] LABS: Hemoglobin 12.8 g/dL (11.5-15.4)
[2018-10-19 07:12] LABS: Alanine Aminotransferase 7 Units/L (7-52); Albumin 3.3 g/dL (3.5-5.7); Albumin/Globulin Ratio 1.4 (1.1-2.2); Alkaline Phosphatase 63 Units/L (34-104); Aspartate Amino Transferase 12 Units/L (13-39); BUN/Creatinine Ratio 8 (6-26); Bilirubin,Indirect 0.3 mg/dL (0.0-1.2); Bilirubin,Total 0.3 mg/dL (0.3-1.0); Blood Urea Nitrogen 6 mg/dL (6-20); Calcium 8.4 mg/dL (8.6-10.3); Carbon Dioxide 25 mEq/L (23-29); Chloride 109 mEq/L (98-107); Globulin 2.4 g/dL (2.4-3.5); Glucose 70 mg/dL (70-105); Osmolality,Calculated 288 (280-300); Potassium 3.8 mEq/L (3.5-5.1); Sodium 141 mEq/L (136-145); Total Protein 5.7 g/dL (6.4-8.9); eGFR For Non-African Americans > 60 (> 60)
--- NOTE | 2018-10-19 08:07 | Event Note ---
Date of Encounter: 10/19/18 Time of Encounter: 08:00
--- NOTE | 2018-10-19 09:42 | Consult Note ---
Date of Encounter: 10/19/18 Time of Encounter: 09:38 Assessment & Recommendation (1) Major depressive disorder Current visit: Yes Status: Chronic Assessment & Recommendation: Client admits overdose was intentional. Will need inpatient treatment once medically stable for ongoing suicidal ideation. Would hold psych meds for now. Qualifiers: Major depression recurrence: recurrent Active/Remission status: currently active Major depression episode severity: severe Psychotic features: without psychotic features Qualified Code(s): F33.2 - Major depressive disorder, recurrent severe without psychotic features (2) Posttraumatic stress disorder Current visit: Yes Status: Chronic History of Present Illness Requesting Physician: Indigo Valencia MD Reason for consult: overdose History of present illness: Ms. Adams is a 38 year old female who was admitted after a polypharmacy overdose of her home medications. Client admits this was a suicide attempt. Client has a history of suicide attempts via overdose and states this was third overdose and fourth overall attempt. Has been hospitalized in the past. Linked with [facility] but client states she has not been compliant as all of her appointments are via telehealth and she does not like this. States PCP prescribes her meds. Effexor is her primary antidepressant. Feels like this medication helps her but still gets depressed and suicidal. Claims she thinks about suicide daily. Does not know why thoughts intensify at times and she acts on them. Denies any AOD use. Has family supports. Denies any recent stressors that precipitated this attempt. CC: Indigo Valencia MD Past Med Surg Social Fam HX - Past Medical History Medical history: GERD, hypertension - Past Psychiatric History Psychiatric history: Reports: bipolar, depression, PTSD, prior suicide attempt, previous psychiatric hospitalization Family psychiatric history: Unknown Family History of Suicide: Unknown - Past Surgical History Surgical History: breast surgery, orthopedic, other, other - Social History Smoking Status: Current every day smoker Smokeless Tobacco Status: No Alcohol use: none Drug use: marijuana - Family History Mother Adopted: No Family Member Ethnicity: Non- Living Status: Still Living Hx Family Cardiac Disorders: Yes (HTN) Hx Family Respiratory Disorders: No Hx Family Cancer: No Hx Family GI Disorders: No Hx Family Endocrine Disorder: No Hx Family Neuromuscular Disorders: No Hx Family Neurologic Disorders: Yes (Migraines) Hx Family HEENT Disorders: No Hx Family Autoimmune Disorders: No Sister Adopted: No Family Member Ethnicity: Non- Living Status: Still Living Hx Family Cardiac Disorders: No Hx Family Respiratory Disorders: No Hx Family Cancer: No Hx Family GI Disorders: No Hx Family Endocrine Disorder: No Hx Family Neuromuscular Disorders: No Hx Family Neurologic Disorders: Yes Hx Family HEENT Disorders: No Hx Family Autoimmune Disorders: No Hx Family Psychosocial Disorders: Yes (depression) Medications & Allergies Atenolol [Tenormin] 25 mg PO DAILY 03/29/17 [History] Pantoprazole Sodium 40 mg PO DAILY 03/29/17 [History] Atenolol [Tenormin] 25 mg PO DAILY #10 tablet 06/25/18 [Rx] Pantoprazole Sodium 40 mg PO DAILY #10 tablet. 06/25/18 [Rx] Allergy/AdvReac Type Severity Reaction Status Date / Time Sulfa (Sulfonamide Allergy Anaphylaxis Verified 10/18/18 23:22 Antibiotics) Review of Systems Constitutional: Denies: fever, chills, weakness, weight change Eyes: Denies: eye pain, vision change Ears, Nose, Throat: Denies: ear pain, throat pain, dental pain, hearing loss, congestion Cardiovascular: Denies: chest pain, palpitations, dyspnea on exertion Respiratory: Denies: cough, dyspnea, wheezes Gastrointestinal: Denies: abdominal pain, nausea, vomiting, diarrhea, constipation Genitourinary female: Denies: urgency, dysuria, frequency, abnormal menses, dyspareunia Musculoskeletal: Denies: joint swelling, joint pain Integumentary: Denies: rash, lesions, pruritus Neurological: Denies: headache, weakness, numbness, memory loss Endocrine: Denies: fatigue, heat or cold intolerance Hematologic/Lymphatic: Denies: easy bruising, lymphadenopathy Allergic/Immunologic: Denies: urticaria, itchy eyes Psychiatry Exam - Constitutional Vitals: Temp Pulse Resp BP Pulse Ox 98.5 F 102 18 96/68 96 10/19/18 07:44 10/19/18 07:44 10/19/18 07:44 10/19/18 07:44 10/19/18 09:26 General appearance: obese - Musculoskeletal Gait: normal Station: relaxed Strength & Tone: normal for patient - Psychiatric Patient Orientation: Yes Person, Yes Time, Yes Place Behavior: calm, cooperative Psychomotor activity: Increased Eye Contact: Maintains Eye Contact Mood Description: Depressed Affect description: congruent with mood Speech Volume: Normal Speech pattern: normal rate, normal rhythm, normal tone, fluent, spontaneous Language & Vocabulary: consistent with education Thought Process: Linear Thought Content: Yes Suicidal ideation, No Homicidal ideation, No Overt delusions Perceptual Disturbances: No Auditory hallucinations, No Visual hallucinations Attention Span Ability: Capable of Focused Attention Memory Description: Grossly Intact Patient Reliability: Reliable Historian Fund of knowledge: Yes abstraction ability, Yes aware of current events Intelligence Estimate: Average Judgment: Poor Insight: Partial Results - Drug Levels and Toxicology Drug Levels and Toxicology: Drug Levels and Toxicity 10/18/18 10/18/18 23:25 23:39 Urine Opiates Screen Negative Acetaminophen < 10 L Ur Barbiturates Screen Negative Ur Phencyclidine Scrn Negative Ur Amphetamines Screen Negative U Benzodiazepines Scrn Negative Urine Cocaine Screen Negative U Marijuana (THC) Screen Negative Ethyl Alcohol < 10 - Labs Labs: Laboratory Last Values WBC 11.4 K/mcL (4.3-11.1) H 10/19/18 06:25 RBC 4.38 M/mcL (3.82-4.97) 10/19/18 06:25 Hgb 12.8 g/dL (11.5-15.4) D 10/19/18 06:25 Hct 39.2 % (35.3-44.9) 10/19/18 06:25 MCV 89.5 fL (83.0-100.0) 10/19/18 06:25 MCH 29.2 pg (28.0-33.3) 10/19/18 06:25 MCHC 32.7 g/dL (31.6-35.5) 10/19/18 06:25 RDW 13.5 % (11.5-14.5) 10/19/18 06:25 Plt Count 292 K/mcL (140-400) 10/19/18 06:25 MPV 9.5 fL (9.4-12.4) 10/19/18 06:25 Immature Gran % 0.2 % (0-4) 10/18/18 23:39 Seg Neutrophils % 65.5 % 10/18/18 23:39 Lymphocytes % 27.4 % 10/18/18 23:39 Monocytes % 6.5 % 10/18/18 23:39 Eosinophils % 0.1 % 10/18/18 23:39 Basophils % 0.3 % 10/18/18 23:39 Neutrophils # 8.3 K/mcL (1.6-8.9) 10/18/18 23:39 Lymphocytes # 3.5 K/mcL (0.6-4.6) 10/18/18 23:39 Monocytes # 0.8 K/mcL (0.0-1.3) 10/18/18 23:39 Eosinophils # 0.0 K/mcL (0.0-0.6) 10/18/18 23:39 Basophils # 0.0 K/mcL (0.0-0.2) 10/18/18 23:39 Sodium 141 mEq/L (136-145) 10/19/18 06:25 Potassium 3.8 mEq/L (3.5-5.1) 10/19/18 06:25 Chloride 109 mEq/L (98-107) H 10/19/18 06:25 Carbon Dioxide 25 mEq/L (23-29) 10/19/18 06:25 BUN 6 mg/dL (6-20) 10/19/18 06:25 Creatinine 0.73 mg/dL (0.60-1.20) 10/19/18 06:25 Est GFR ( Amer) > 60 (> 60) 10/19/18 06:25 Est GFR (Non-Af Amer) > 60 (> 60) 10/19/18 06:25 BUN/Creatinine Ratio 8 (6-26) 10/19/18 06:25 Glucose 70 mg/dL (70-105) 10/19/18 06:25 Calculated Osmolality 288 (280-300) 10/19/18 06:25 Calcium 8.4 mg/dL (8.6-10.3) L 10/19/18 06:25 Total Bilirubin 0.3 mg/dL (0.3-1.0) 10/19/18 06:25 Direct Bilirubin 0.0 mg/dL (0.0-0.2) 10/19/18 06:25 Indirect Bilirubin 0.3 mg/dL (0.0-1.2) 10/19/18 06:25 AST 12 Units/L (13-39) L 10/19/18 06:25 ALT 7 Units/L (7-52) 10/19/18 06:25 Alkaline Phosphatase 63 Units/L (34-104) 10/19/18 06:25 Serum Total Protein 5.7 g/dL (6.4-8.9) L 10/19/18 06:25 Albumin 3.3 g/dL (3.5-5.7) L 10/19/18 06:25 Globulin 2.4 g/dL (2.4-3.5) 10/19/18 06:25 Albumin/Globulin Ratio 1.4 (1.1-2.2) 10/19/18 06:25 Urine Color Yellow (Yellow) 10/18/18 23:25 Urine Clarity Clear (Clear) 10/18/18 23:25 Urine pH 6.5 pH Units (5.0-8.0) 10/18/18 23:25 Ur Specific [place] 1.007 (1.010-1.025) L 10/18/18 23:25 Urine Protein Negative mg/dL (Neg-Trace) 10/18/18 23:25 Urine Glucose (UA) Normal mg/dL (Normal) 10/18/18 23:25 Urine Ketones Negative mg/dL (Negative) 10/18/18 23:25 Urine Blood Trace (Negative) H 10/18/18 23:25 Urine Nitrite Negative (Negative) 10/18/18 23:25 Urine Bilirubin Negative (Negative) 10/18/18 23:25 Urine Urobilinogen Normal mg/dL (Normal) 10/18/18 23:25 Ur Leukocyte Esterase Negative (Negative) 10/18/18 23:25 Urine Microscopic RBC 0-3 per hpf (0-3) 10/18/18 23:25 Urine Microscopic WBC 0-3 per hpf (0-3) 10/18/18 23:25 Ur Squamous Epith Cells Moderate per lpf (None-Few) H 10/18/18 23:25 Urine Bacteria Few per hpf (None-Few) 10/18/18 23:25 Urine Test Negative (Negative) 10/18/18 23:25 Salicylates < 2.5 mg/dL (15.0-30.0) L 10/18/18 23:39 Urine Opiates Screen Negative ng/mL (Ixqgms=845) 10/18/18 23:25 Acetaminophen < 10 mcg/mL (10-20) L 10/18/18 23:39 Ur Barbiturates Screen Negative ng/mL (Djpjpm=957) 10/18/18 23:25 Ur Phencyclidine Scrn Negative ng/mL (Cutoff=25) 10/18/18 23:25 Ur Amphetamines Screen Negative ng/mL (Azcghz=7169) 10/18/18 23:25 U Benzodiazepines Scrn Negative ng/mL (Oxkwtb=977) 10/18/18 23:25 Urine Cocaine Screen Negative ng/mL (Cutoff= 300) 10/18/18 23:25 U Marijuana (THC) Screen Negative ng/mL (Cutoff = 50) 10/18/18 23:25 Ur Drug Screen Interp See Below 10/18/18 23:25 Ethyl Alcohol < 10 mg/dL (Less than 10) 10/18/18 23:39 Consult Discharge Plan - Plan Referrals: Chel Padilla, LOBSTER FISHERMAN [Primary Care Provider] -
[2018-10-19 12:59] VITALS: BP 115/72
--- NOTE | 2018-10-19 14:26 | Discharge Summary ---
Orders not resulted at time of discharge: Pending orders 10/18/18 23:28 ECG 12 lead ECG [ECG] Stat 10/19/18 05:36 EKG [ECG 12 lead ECG] [ECG] Stat Date of Encounter: 10/19/18 Time of Encounter: 09:00 - Discharge Diagnosis (1) Suicidal overdose Priority: Primary Status: Acute Assessment and Plan: 38 year old female with a history of multiple suicide attempts, depression, and trauma who presented to the ER after her boyfriend found 2 empty bottles of pills in the bathroom that she had ingested. Patient's boyfriend Vijay is at bedside. Patient is believed to have ingested venlafaxine HCL ER 150 mg capsules quantity 30 (4500mg total) and Prazosin 1 mg capsule quantity 60 (60mg total). She admits that this was a suicide attempt in that she, "felt everyone would be better off without her." Her boyfriend states that he was home in another room when the patient ingested the pills in the bathroom. She states that she has had regular, daily thoughts of suicide, even on her "good days." She denies talking to anyone about her thoughts or feelings. She states that she is not currently seeing a counselor or psychiatrist and hasn't for over a year. She states that she thinks her medication does help some. She was previously doing tele-medicine counseling, which she states was not helpful. She explains that the reason she does not talk to anyone about her problems is because she do es not want to burden them. Patient admits to previous suicide attempts which involved medication ingestion as well as cutting herself with a knife. She states that she does not know why she is depressed. She also admits that she feels no emotion when talking about these issues. She admits to nausea, headache, lightheadedness upon movement, and tremor (which she states she has since she was a child). She denies any chest pain, palpitations, SOB, abdominal pain, vomiting, or diarrhea. She was assessed with suicidal ideation with medication overdose. She had serial EKGs showing no prolongation in QT. Poison control was contacted who recommended supportive care. She was hydrated with Iv fluids and monitored on a tele floor. The half life of venlafaxine is 11- 18hrs and with no acute events so far, patient is medically cleared to proceed to inpatient psych for further management Qualifiers: Encounter type: initial encounter Qualified Code(s): T50.902A - Poisoning by unspecified drugs, medicaments and biological substances, intentional self- harm, initial encounter Hospital course: Ms. Adams is a 38 year old female - Time Spent with Patient Total time spent providing and/or coordinating discharge services: - Discharge Medications Prescriptions: Continue Atenolol [Tenormin] 25 mg PO DAILY #10 tablet Pantoprazole Sodium 40 mg PO DAILY #10 tablet. Pantoprazole Sodium 40 mg PO DAILY Atenolol [Tenormin] 25 mg PO DAILY Home Medications: Atenolol [Tenormin] 25 mg PO DAILY 03/29/17 [History] Pantoprazole Sodium 40 mg PO DAILY 03/29/17 [History] Atenolol [Tenormin] 25 mg PO DAILY #10 tablet 06/25/18 [Rx] Pantoprazole Sodium 40 mg PO DAILY #10 tablet. 06/25/18 [Rx] Allergies/Adverse Reactions: Allergy/AdvReac Type Severity Reaction Status Date / Time Sulfa (Sulfonamide Allergy Anaphylaxis Verified 10/18/18 23:22 Antibiotics) Date of admission: 10/19/18 02:18 Primary care physician: Chel Padilla CNP Consults: 10/19/18 06:21 Consult to Psychiatry [CONS] Routine Consulting Provider: Psychiatry Varina Reason consult: Milnor slip on chart Milnor Slip initiated date and time: 10/19/182 - Constitutional Vitals: Temp Pulse Resp BP Pulse Ox 97.7 F 99 18 115/72 95 10/19/18 12:59 10/19/18 12:59 10/19/18 12:59 10/19/18 12:59 10/19/18 12:59 General appearance: Present: A&O X 3, no acute distress, answers questions appropriately Exam: Gen - Awake, alert, oriented x 3, no acute distress HEENT - NCAT, PERRLA, EOMI, hearing grossly intact, oropharynx benign CV - RRR, normal S1 and S2, no M/R/G, no BLE edema Resp - Normal WOB, CTAB, no W/R/R GI - Soft, NT/ND, no masses, normal bowel sounds, Skin - Warm, dry, no rashes/lesions/ulcers Ext- Has restless legs Psych - Normal mood and affect, no depression or anxiety - Patient Status Disposition: Transfer Psychiatric Hosp Condition: Good - Discharge Instructions Instructions: Depression (DC), Suicide Prevention for Adults (DC), Anxiety (DC) Follow Up With: Chel Padilla, [employer] [Primary Care Provider] - (Web-requested, the office will ca ll the patient to schedule a follow up appointment.)
--- NOTE | 2018-10-23 22:09 | Electrocardiograph Report ---
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
== END 2018-10-19 16:42 ==
LOC: 3ANU 23:14 → EMEROOARM 23:14 → 3ANU 10-19 02:40
PROVIDERS: ADMIT Internal Medicine; ATTEND Internal Medicine

== ENCOUNTER 2019-06-30 10:20 | Inpatient (IN) ==
[2019-06-30] MEDS ORDERED: Ondansetron 4 MG/2 ML VIAL IVP PRN ×2 (12:32→22:23)
[2019-06-30] MEDS ORDERED: Naloxone 0.4 MG/ML INJ IVP PRN ×2 (12:32→22:23)
[2019-06-30] MEDS ORDERED: *HR* Midazolam HCl 2 MG/2 ML VIAL ONE ×2 (17:13→17:22)
[2019-06-30] MEDS ORDERED: *HR* FentaNYL (PF) 100 MCG/2 ML VIAL ONE ×2 (17:14→17:22)
[2019-06-30] MEDS ORDERED: Ropivacaine/PF 0.5% 30 ML VIAL ONE (17:14)
[2019-06-30] MEDS ORDERED: ROPIVACAINE/PF/NS 0.25% 1 EACH SYRINGE INTRAART ONE (17:14)
[2019-06-30] MEDS ORDERED: Acetaminophen IV 1,000 MG/100 ML INFUS..BTL ONE (17:14)
[2019-06-30] MEDS ORDERED: Bupivacaine/EPI 1:200k 0.5%PF 30 ML VIAL ONE (17:21)
[2019-06-30] MEDS ORDERED: *HR* Propofol 200 MG/20 ML VIAL IVP ONE (17:22)
[2019-06-30] MEDS ORDERED: ceFAZolin 2,000 MG in Water for inj. (sterile) 20 ML IVP ONE ×2 (17:58→22:23)
[2019-06-30] MEDS ORDERED: Lidocaine -MPF 4% 5 ML AMPUL ONE (18:11)
[2019-06-30] MEDS ORDERED: Lidocaine -MPF 2% 2 ML VIAL ONE (18:11)
[2019-06-30] MEDS ORDERED: *HR* PHENYLEPHRINE 1,000 MCG/10 ML SYRINGE IVP ONE (18:37)
[2019-06-30] MEDS ORDERED: Ondansetron 4 MG/2 ML VIAL ONE (18:52)
[2019-06-30] MEDS ORDERED: Dexamethasone 4 MG/ML VIAL ONE (18:52)
[2019-06-30] MEDS ORDERED: *HR* Rocuronium Bromide 50 MG/5 ML VIAL ONE (19:33)
[2019-06-30] MEDS ORDERED: Neostigmine Methylsulfate 3 MG/3 ML SYRINGE ONE (21:03)
[2019-06-30] MEDS: Nicotine 2 MG GUM BC PRN (23:14)
[2019-07-01 06:22] LABS: Basophils % 0.1 %; Hematocrit 39.7 % (35.3-44.9); Hemoglobin 13.1 g/dL (11.5-15.4); Immature Granulocytes % 0.4 % (0-4); Lymphocytes # 1.2 K/mcL (0.6-4.6); Lymphocytes % 9.4 %; Mean Corpuscular Hemoglobin 29.9 pg (28.0-33.3); Mean Corpuscular Volume 90.6 fL (83.0-100.0); Monocytes # 0.1 K/mcL (0.0-1.3); Platelet Count 337 K/mcL (140-400); Red Blood Count 4.38 M/mcL (3.82-4.97); Red Cell Distribution Width 13.9 % (11.5-14.5); Segmented Neutrophils % 89.1 %; White Blood Count 12.3 K/mcL (4.3-11.1)
[2019-07-01 06:41] LABS: BUN/Creatinine Ratio 10 (6-26); Blood Urea Nitrogen 8 mg/dL (6-20); Calcium 8.1 mg/dL (8.6-10.3); Carbon Dioxide 23 mEq/L (23-29); Chloride 107 mEq/L (98-107); Glucose 137 mg/dL (70-105); Magnesium 1.8 mg/dL (1.6-2.6); Osmolality,Calculated 288 (280-300); Potassium 4.6 mEq/L (3.5-5.1); Sodium 139 mEq/L (136-145); eGFR For African Americans > 60 (> 60); eGFR For Non-African Americans > 60 (> 60)
[2019-07-01] MEDS: Nicotine 2 MG GUM BC PRN ×2 (10:00→18:59)
[2019-07-01] MEDS ORDERED: Acetaminophen IV 1,000 MG/100 ML INFUS..BTL IVPB ONE (20:39)
[2019-07-01] MEDS ORDERED: rOPINIRole 0.25 MG TABLET PO SCH (21:00)
[2019-07-01] MEDS ORDERED: *HR* HYDROcodone/Acet 5/325 mg TABLET PO PRN (22:23)
[2019-07-02 05:07] LABS: Basophils % 0.1 %; Hematocrit 35.3 % (35.3-44.9); Immature Granulocytes % 0.6 % (0-4); Lymphocytes # 3.6 K/mcL (0.6-4.6); Lymphocytes % 21.1 %; Mean Corpuscular HGB Conc 32.3 g/dL (31.6-35.5); Mean Corpuscular Hemoglobin 29.8 pg (28.0-33.3); Mean Corpuscular Volume 92.2 fL (83.0-100.0); Monocytes # 1.1 K/mcL (0.0-1.3); Monocytes % 6.3 %; Neutrophils # 12.2 K/mcL (1.6-8.9); Platelet Count 326 K/mcL (140-400); Red Blood Count 3.83 M/mcL (3.82-4.97); Red Cell Distribution Width 13.9 % (11.5-14.5); Segmented Neutrophils % 71.9 %; White Blood Count 16.9 K/mcL (4.3-11.1)
[2019-07-02 05:08] LABS: Hemoglobin 11.4 g/dL (11.5-15.4)
[2019-07-02 06:43] LABS: BUN/Creatinine Ratio 17 (6-26); Blood Urea Nitrogen 16 mg/dL (6-20); Calcium 8.4 mg/dL (8.6-10.3); Carbon Dioxide 29 mEq/L (23-29); Chloride 103 mEq/L (98-107); Glucose 118 mg/dL (70-105); Osmolality,Calculated 294 (280-300); Potassium 3.9 mEq/L (3.5-5.1); Sodium 141 mEq/L (136-145); eGFR For African Americans > 60 (> 60); eGFR For Non-African Americans > 60 (> 60)
[2019-07-02 11:48] VITALS: BP 114/68
== END 2019-07-02 13:20 | disposition home health service (06) | DRG 315 ==
LOC: 3NENU → SUATTDRO 13:20
PROVIDERS: ADMIT Internal Medicine; ATTEND Internal Medicine